=== PATIENT | female | born 1930 | race Caucasian/White ===

== ENCOUNTER 2017-02-22 05:30 | Emergency (ER) | payer MEDICARE ==
[~2017-02-22] VITALS: Ht 165.1 cm; Wt 55.0 kg
[~2017-02-22 05:30] MED LIST: ASPI1TAB69 PO; CARB25TA9 PO; DORZ2SOL EACH EYE; EFFE150C PO; LATA0.002 EACH EYE; LORA-373 PO; POTA-243 PO; SENN1TAB PO; TRAM50TA PO; VITA10003 PO
[2017-02-22 05:33] VITALS: BP 160/68; PULSE 66; RESP 18; TEMP 98.5; O2SAT 96
[2017-02-22] MEDS ORDERED: ACET-703 PO (05:42)
[2017-02-22] MEDS ORDERED: TETANUS/DIPHTHERIA TOXOID ADULT 0.5 ML VIAL IM ONE (06:00)
[2017-02-22] MEDS ORDERED: LIDOCAINE 1%/EPINEPHrine 1:100,000 SOLN 20 ML VIAL INFIL ONE (06:00)
--- NOTE | 2017-02-22 06:12 | PD ---
HPI Chief Complaint: Laceration/Skin Injury Time Seen by Provider: 05:46 Travel History International Travel<30 days: No Contact w/Intl Traveler<30days: No Traveled to known affect area: No History of Present Illness HPI 86-year-old female arrives after a mechanical slip and fall in her house. She arrives with a laceration involving the right forearm. She does not her last tetanus. She has no other injury to report. PFSH Past Medical History Anxiety: Yes Depression: Yes Heart Rhythm Problems: No Cancer: No Cardiovascular Problems: No High Cholesterol: No Cerebrovascular Accident: No Diabetes: No Endocrine: No Genitourinary: Yes (KIDNEY STONes) Hepatitis: No Hiatal Hernia: No Immune Disorder: No Kidney Stones: Yes Musculoskeletal: No Neurologic: Yes (PARKINSON) Psychiatric: Yes (ANXIETY DEPRESSION) Reproductive: No Respiratory: No Migraines: No Seizures: No Thyroid Disease: No Menopausal: Yes Past Surgical History Abdominal Surgery: No AICD: No Cardiac Surgery: No Ear Surgery: No Endocrine Surgery: No Eye Surgery: Yes (cataract) Genitourinary Surgery: No Gynecologic Surgery: Yes (HYSTERECTOMY) Joint Replacement: No Oral Surgery: No Pacemaker: No Other Surgery: Yes Social History Alcohol Use: No Tobacco Use: No Substance Use: No Allergies-Medications (Allergen,Severity, Reaction): Coded Allergies: No Known Allergies (Unverified , 02/22/17) Reported Meds & Prescriptions Reported Meds & Active Scripts Active Lorazepam 0.5 Mg Tab 0.5 Mg PO HS PRN Senna-Plus (Sennosides-Docusate Sodium) 8.6-50 Mg Tab 2 Tab PO DAILY 2 tablets daily; hold for loose BM Reported Tylenol Extra Strength (Acetaminophen) 500 Mg Tab 500 Mg PO HS Dorzolamide Opth Drops (Dorzolamide HCl) 2% Soln 1 Drop EACH EYE BID Latanoprost Opth Drops (Latanoprost) 0.005% Drops 1 Drop EACH EYE HS Refrigerate until opened. Vitamin D-3 (Cholecalciferol) 1,000 Unit Tab 1,000 Units PO DAILY Aspirin 81 Mg Tabdr 81 Mg PO DAILY Effexor XR 24 HR (Venlafaxine HCl) 150 Mg Cap 150 Mg PO DAILY Carbidopa-Levodopa 25-100 Mg Tab 1 Tab PO TID Review of Systems General / Constitutional: No: Fever Physical Exam Narrative GENERAL: 86 F, WNWD, mild distress SKIN: Warm and dry. HEAD: Atraumatic. Normocephalic. MUSCULOSKELETAL: Extremities without clubbing, cyanosis, or edema. No obvious deformities. NEUROLOGICAL: Awake and alert. No obvious cranial nerve deficits. Motor grossly within normal limits. Five out of 5 muscle strength in the arms and legs. Normal speech. PSYCHIATRIC: Appropriate mood and affect; insight and judgment normal. Data Data Last Documented VS Vital Signs Date Time Temp Pulse Resp B/P Pulse Ox O2 Delivery O2 Flow Rate FiO2 02/22/17 05:33 98.5 66 18 160/68 96 Vital signs reviewed Orders Tetanus/Diphtheria Tox Adult (Tetanus/Di (02/22/17 06:00) Lidocai-Epi 1%-1:100,000 Inj (Xylocaine- (02/22/17 06:00) MDM Medical Decision Making Medical Screen Exam Complete: Yes Emergency Medical Condition: Yes Medical Record Reviewed: Yes Differential Diagnosis Laceration, avulsion, tendon injury Narrative Course laceration repair by PA appreciated. pt ready for discharge. Diagnosis Primary Impression: Laceration of arm Qualified Code: S41.111A - Laceration of arm, right, initial encounter Referrals: return to er in 9 days for suture removal Additional Instructions: You have a choice when it comes to health care, and we are glad that you chose [email or web address]. Hopefully, we have met your expectations on today's visit. You are welcome to return to [facility] at any time, as we are committed to meeting the health care needs of our community. Disposition: 01 DISCHARGE HOME Condition: Stable Marco Antonio Kingsley MD Feb 22, 2017 06:12
--- NOTE | 2017-02-22 06:46 | PD ---
Physical Exam Time Seen by Provider: 06:00 Data Data Last Documented VS Vital Signs Date Time Temp Pulse Resp B/P Pulse Ox O2 Delivery O2 Flow Rate FiO2 02/22/17 05:33 98.5 66 18 160/68 96 Orders Tetanus/Diphtheria Tox Adult (Tetanus/Di (02/22/17 06:00) Lidocai-Epi 1%-1:100,000 Inj (Xylocaine- (02/22/17 06:00) MDM Medical Record Reviewed: Yes Supervised Visit with EDGARDO: No Narrative Course The patient has a large flap laceration to the right forearm, I was asked to repair it. The patient verbally consented for laceration repair. Procedures Procedure Narrative LACERATION LOCATION: Right arm LENGTH: 10-15 cm NUMBER OF STITCHES/VAL: 25 REPAIR: The area of the laceration was prepped with Betadine and sterilely draped. The laceration was infiltrated with 1% lidocaine with epinephrine. The wound was copiously irrigated and explored without evidence of foreign body , tendon injury or neurovascular injury. The wound was closed using 5-0 prolene simple interrupted. This was a single layer repair. A sterile dressing was applied. The patient was advised to keep the dressing clean and dry. Patient tolerated the procedure well. Diagnosis Primary Impression: Laceration of arm Qualified Code: S41.111A - Laceration of arm, right, initial encounter Referrals: return to er in 9 days for suture removal Additional Instruction: You have a choice when it comes to health care, and we are glad that you chose [facility]. Hopefully, we have met your expectations on today's visit. You are welcome to return to [facility] at any time, as we are committed to meeting the health care needs of our community. Disposition: 01 DISCHARGE HOME Condition: Stable Rahat Bhatt Feb 22, 2017 06:46
[2017-02-22 08:08] VITALS: BP 154/69; PULSE 70; RESP 18; O2SAT 98
[2017-03-17] MEDS ORDERED: LORA-373 PO (11:27)
== END 2017-02-22 08:48 | disposition home or self-care (01) ==
LOC: NEPE 05:30
DX: S51.811A Laceration without foreign body of right forearm, initial encounter (principal); Z23 Encounter for immunization; G20 Parkinson's disease; W01.0XXA Fall on same level from slipping, tripping and stumbling without subsequent striking against object, initial encounter; Y93.9 Activity, unspecified; Y92.009 Unspecified place in unspecified non-institutional (private) residence as the place of occurrence of the external cause; Y99.8 Other external cause status
CPT/HCPCS: 12004; 90471; 90714

== ENCOUNTER 2018-04-05 17:57 | Inpatient (IN) | payer MEDICARE ==
[~2018-04-05] VITALS: Ht 165.1 cm; Wt 52.2 kg
[~2018-04-05 17:57] MED LIST changes: -ASPI1TAB69 PO; +DOCU100C15 PO; -LORA-373 PO; +LORA0.5T PO; -POTA-243 PO; -SENN1TAB PO; +SULF1TAB23 PO; -TRAM50TA PO; -VITA10003 PO
[2018-04-05 18:03] VITALS: BP 165/75; PULSE 90; RESP 14; TEMP 98.3; O2SAT 97
[2018-04-05] MEDS ORDERED: SODIUM CHLORID 0.9% 500 ML INJ 500 ML IV ONE (18:15)
[2018-04-05] MEDS ORDERED: METOCLOPRAMIDE HCL 10 MG/2 ML VIAL IV PUSH ONE (18:15)
[2018-04-05] MEDS ORDERED: SODIUM CHLORIDE 0.9% FLUSH 10 ML FLUSH IVF PRN (18:15)
[2018-04-05] MEDS ORDERED: CALC200S NASAL (18:43)
[2018-04-05] MEDS ORDERED: TRAM50TA PO (18:43)
[2018-04-05 18:45] LABS: AUTOMATED NEUTROPHIL # 12.5 TH/MM3 (1.8-7.7); BASOPHIL % 0.1 % (0.0-2.0); HEMATOCRIT 38.7 % (35.0-46.0); LYMPH % 2.7 % (9.0-44.0); LYMPHOCYTE # 0.4 TH/MM3 (1.0-4.8); MEAN CORPUSCULAR HGB CONC 33.7 % (32.0-36.0); MEAN PLATELET VOLUME 8.2 FL (7.0-11.0); MONO % 7.1 % (0.0-8.0); NEUT % 90.1 % (16.0-70.0); PLATELET COUNT 186 TH/MM3 (150-450); RED BLOOD COUNT 3.95 MIL/MM3 (4.00-5.30); RED CELL DISTRIBUTION WIDTH 13.3 % (11.6-17.2); WHITE BLOOD COUNT 13.9 TH/MM3 (4.0-11.0)
--- NOTE | 2018-04-05 18:57 | RADRPT ---
EXAM DATE: 04/05/2018 6:53 PM EDT AGE/SEX: 87 years / Female INDICATIONS: Pain from fall on right shoulder. CLINICAL DATA: This is the patient's initial encounter. Patient reports that signs and symptoms have been present for 1 day and indicates a pain score of 3/10. MEDICAL/SURGICAL HISTORY: None. None. COMPARISON: No prior [facility] exams available for comparison. FINDINGS: No acute fracture or dislocation is noted. Mild degenerative changes are noted involving the right ac romioclavicular joint. CONCLUSION: 1. No acute fracture or dislocation. 2. Mild degenerative changes involving the right acromioclavicular joint. Electronically signed by: Omar Das MD 04/05/2018 6:55 PM EDT
[2018-04-05 19:03] LABS: INTERNATIONAL NORMALIZED RATIO 1.2 RATIO; PROTHROMBIN TIME - PATIENT 11.9 SEC (9.8-11.6)
--- NOTE | 2018-04-05 19:04 | PD ---
HPI Chief Complaint: Fall Time Seen by Provider: 18:09 Travel History International Travel<30 days: No Contact w/Intl Traveler<30days: No Traveled to known affect area: No History of Present Illness HPI 87 YO F with PMH of Parkinsons presents to the ED for evaluation after mechanical fall. Patient states that she has an ataxic gait, lost her balance, slumped to the floor. She states that she was unable to get up overnight. She denies preceding headache, dizziness, chest pain, shortness of breath. She denies hitting her head or loss of consciousness. Her son is at bedside and states that he saw her normally around 8:00 last night. He found her this afternoon around 4:00. States she has been alert, oriented, ambulatory since then. He states he became concerned with his mom started vomiting around 6 PM, so he brought her to the ED. PFSH Past Medical History Anxiety: Yes Depression: Yes Heart Rhythm Problems: No Cancer: No Cardiovascular Problems: No High Cholesterol: No Cerebrovascular Accident: No Diabetes: No Endocrine: No Genitourinary: Yes (KIDNEY STONes) Hepatitis: No Hiatal Hernia: No Immune Disorder: No Kidney Stones: Yes Medical other: Yes (HISTORY OF FALLS) Musculoskeletal: No Neurologic: Yes (PARKINSON) Parkinson's Disease: Yes Psychiatric: Yes (ANXIETY DEPRESSION) Reproductive: No Respiratory: No Migraines: No Seizures: No Thyroid Disease: No Menopausal: Yes Past Surgical History Abdominal Surgery: No AICD: No Cardiac Surgery: No Ear Surgery: No Endocrine Surgery: No Eye Surgery: Yes (cataract) Genitourinary Surgery: No Gynecologic Surgery: Yes (HYSTERECTOMY) Joint Replacement: No Oral Surgery: No Pacemaker: No Other Surgery: Yes Social History Alcohol Use: No Tobacco Use: No Substance Use: No Allergies-Medications (Allergen,Severity, Reaction): Coded Allergies: No Known Allergies (Unverified Adverse Reaction, Unknown, 04/05/18) Reported Meds & Prescriptions Reported Meds & Active Scripts Active Lorazepam 0.5 Mg Tab 0.5 Mg PO DIRECTED PRN 1-2 tabs (0.5-1mg) at bedtime as needed for sleep Effexor XR 24 HR (Venlafaxine HCl) 150 Mg Cap 150 Mg PO DAILY Carbidopa-Levodopa 25-100 Mg Tab 1 Tab PO TID Reported Calcitonin ([place]) Nasal [place] (Calcitonin [place]) 200 Units/Act Soln 1 [place] NASAL DAILY Alternate nostrils daily. Tramadol (Tramadol HCl) 50 Mg Tab 50 Mg PO Q6H PRN Docusate Sodium 100 Mg Cap 200 Mg PO HS Dorzolamide Opth Drops (Dorzolamide HCl) 2% Soln 1 Drop EACH EYE BID Latanoprost Opth Drops (Latanoprost) 0.005% Drops 1 Drop EACH EYE HS Refrigerate until opened. Review of Systems Except as stated in HPI: all other systems reviewed are Neg Physical Exam Narrative GENERAL: Well-nourished, well-developed pleasant white female no acute distress. Alert, oriented. SKIN: Focused skin assessment warm/dry. Ecchymosis over the right shoulder. HEAD: Normocephalic. Atraumatic. No tenderness to palpation of the skull bones EYES: No scleral icterus. No injection or drainage. PERRLA. EOMI. . NECK: Supple, trachea midline. No JVD or lymphadenopathy. No midline tenderness to palpation. CARDIOVASCULAR: Regular rate and rhythm without murmurs, gallops, or rubs. RESPIRATORY: Breath sounds clear and equal bilaterally. No accessory muscle use. GASTROINTESTINAL: Abdomen soft, non-tender, nondistended. Active bowel sounds. MUSCULOSKELETAL: No cyanosis, or edema. Mild tenderness to palpation of the right shoulder joint. Patient is able to extend, flex and abduct the shoulder without difficulty. No tenderness to palpation of the remaining joints of the upper and lower extremities bilaterally. Leg length symmetric. No pain elicited with pelvic rocking. BACK: Nontender without obvious deformity. No CVA tenderness. Data Data Last Documented VS Vital Signs Date Time Temp Pulse Resp B/P (MAP) Pulse Ox O2 Delivery O2 Flow Rate FiO2 04/05/18 19:33 92 18 121/59 (79) 99 Room Air 04/05/18 18:03 98.3 Orders Orders Electrocardiogram (04/05/18 18:14) Complete Blood Count With Diff (04/05/18 18:14) Comprehensive Metabolic Panel (04/05/18 18:14) Prothrombin Time / Inr (Pt) (04/05/18 18:14) Act Partial Throm Time (Ptt) (04/05/18 18:14) Urinalysis - C+S If Indicated (04/05/18 18:14) Iv Access Insert/Monitor (04/05/18 18:14) Oximetry (04/05/18 18:14) Ecg Monitoring (04/05/18 18:14) Sodium Chloride 0.9% Flush (Ns Flush) (04/05/18 18:15) Sodium Chlorid 0.9% 500 Ml Inj (Ns 500 M (04/05/18 18:15) Metoclopramide Inj (Reglan Inj) (04/05/18 18:15) Shoulder, Complete (>2vws) (04/05/18 18:24) Creatine Kinase (Cpk) (04/05/18 18:14) CKMB (04/05/18 18:20) CKMB% (04/05/18 18:20) Sodium Chlor 0.9% 1000 Ml Inj (Ns 1000 M (04/05/18 20:30) Admit Order (Ed Use Only) (04/05/18 21:19) Labs Laboratory Tests Test 04/05/18 18:00 04/05/18 18:20 White Blood Count 13.9 TH/MM3 Red Blood Count 3.95 MIL/MM3 Hemoglobin 13.0 GM/DL Hematocrit 38.7 % Mean Corpuscular Volume 98.0 FL Mean Corpuscular Hemoglobin 33.0 PG Mean Corpuscular Hemoglobin Concent 33.7 % Red Cell Distribution Width 13.3 % Platelet Count 186 TH/MM3 Mean Platelet Volume 8.2 FL Neutrophils (%) (Auto) 90.1 % Lymphocytes (%) (Auto) 2.7 % Monocytes (%) (Auto) 7.1 % Eosinophils (%) (Auto) 0.0 % Basophils (%) (Auto) 0.1 % Neutrophils # (Auto) 12.5 TH/MM3 Lymphocytes # (Auto) 0.4 TH/MM3 Monocytes # (Auto) 1.0 TH/MM3 Eosinophils # (Auto) 0.0 TH/MM3 Basophils # (Auto) 0.0 TH/MM3 CBC Comment DIFF FINAL Differential Comment Prothrombin Time 11.9 SEC Prothromb Time International Ratio 1.2 RATIO Activated Partial Thromboplast Time 27.1 SEC Blood Urea Nitrogen 21 MG/DL Creatinine 0.79 MG/DL Random Glucose 118 MG/DL Total Protein 7.8 GM/DL Albumin 3.4 GM/DL Calcium Level 9.3 MG/DL Alkaline Phosphatase 160 U/L Aspartate Amino Transf (AST/SGOT) 90 U/L Alanine Aminotransferase (ALT/SGPT) 11 U/L Total Bilirubin 1.0 MG/DL Sodium Level 138 MEQ/L Potassium Level 3.3 MEQ/L Chloride Level 100 MEQ/L Carbon Dioxide Level 23.8 MEQ/L Anion Gap 14 MEQ/L Estimat Glomerular Filtration Rate 69 ML/MIN Total Creatine Kinase 2030 U/L Creatine Kinase MB 16.1 NG/ML Creatine Kinase MB % 0.8 % MDM Medical Decision Making Medical Screen Exam Complete: Yes Emergency Medical Condition: Yes Differential Diagnosis Fall versus musculoskeletal pain versus fracture versus rhabdomyolysis versus other Narrative Course 87 YO F with PMH of Parkinsons presents to the ED for evaluation after mechanical fall. Patient states that she has an ataxic gait, lost her balance, slumped to the floor. She states that she was unable to get up overnight. She denies preceding headache, dizziness, chest pain, shortness of breath. She denies hitting her head or loss of consciousness. Her son became worried when she was nauseous this afternoon and brought her to the ED. patient is afebrile, heart rate 90, BP 165/75 on presentation. On exam this is a pleasant white female in no acute distress. She has a bruise on the right shoulder but there is no other visible signs of trauma. She is alert and oriented. No focal neuro deficits. She had a few episodes of dark emesis, guaiac negative. IV was established. Patient was administered 0.5 L normal saline, 5 mg Reglan IV. EKG: Rate 76, P waves of multiple morphologies. Rate of 80. No ST elevations. Reviewed by Dr. Rodriguez. CBC: WBC 13.9, neutrophil predominant. Hemoglobin 13.0. INR: 1.2. CMP: Potassium 3.3. BUN 21, creatinine 0.79. CK: 2030. Right shoulder x-ray: Degenerative changes in the AC joint, no acute findings. Patient was administered a second liter of normal saline. On recheck she seems improved, vomiting and nausea have resolved. I discussed the results of workup as well as the recommendation for observation admission. The patient and her family are agreeable. I spoke with Dr. Aragon who agree to accept the patient the medicine service. Please see medicine notes for disposition. [facility] Point of Care Internal Pos. & Neg. Controls: Passed Gastric Specimen Occult Blood: Negative Dayana Giang Apr 05, 2018 19:04
[2018-04-05 19:21] LABS: ALBUMIN 3.4 GM/DL (3.4-5.0); AST (GOT) 90 U/L (15-37); BICARBONATE 23.8 MEQ/L (21.0-32.0); BLOOD UREA NITROGEN 21 MG/DL (7-18); CALCIUM 9.3 MG/DL (8.5-10.1); CHLORIDE 100 MEQ/L (98-107); CREATININE 0.79 MG/DL (0.50-1.00); GLOMERULAR FILTRATION RATE 69 ML/MIN (>89); GLUCOSE,RANDOM 118 MG/DL (74-106); SODIUM (NA) 138 MEQ/L (136-145)
[2018-04-05 19:22] LABS: ALT (GPT) 11 U/L (10-53)
[2018-04-05 19:33] VITALS: BP 121/59; PULSE 92; RESP 18; O2SAT 99
[2018-04-05 19:39] LABS: ALKALINE PHOSPHATASE 160 U/L (45-117); TOTAL PROTEIN 7.8 GM/DL (6.4-8.2)
[2018-04-05] MEDS ORDERED: SODIUM CHLOR 0.9% 1000 ML INJ 1,000 ML IV ONE (20:30)
--- NOTE | 2018-04-05 21:23 | HHI.HP ---
[facility] Service Family Medicine Primary Care Physician Jacob Diaz MD Admission Diagnosis Rhabdomyolysis Diagnoses: Chief Complaint: fall International Travel<30 Days: No Contact w/Intl Traveler<30days: No Known Affected Area: No History of Present Illness 87-year-old female with history of Parkinson's, depression, recurrent falls presents after a fall. Patient is accompanied by son who provides some of the history. Patient states she has a history of an ataxic gait and several falls in the last year. She is unsure of what happened, but lost her balance and fell last night. She lives by herself at [facility]. Her son found her this morning at 9 AM. States she fell around 5 PM last night. Denies hitting her head. Did bruise her shoulder little bit, but otherwise no pain anywhere else. Initially stayed at home, but throughout the day patient became more lethargic and nauseous and then was brought to the ED for evaluation. She usually gets up on her own from falls, but this time was too weak. Did urinate while she was on the ground. States she has falls about once per month. Is a walker at home. Denies any other preceding symptoms, including dizziness, chest pain, shortness of breath. Denies any fever or chills, recent illness. (Lester Aragon MD R2) Review of Systems Constitutional: DENIES: Fever, Weight loss, Chills, Dizziness Eyes: DENIES: Eye pain, Vision loss Ears, nose, mouth, throat: DENIES: Nasal discharge, Throat pain, Hoarseness Respiratory: DENIES: Cough, Snoring, Wheezing, Sputum production, Shortness of breath Cardiovascular: DENIES: Chest pain, Palpitations, Syncope, Lower Extremity Edema Gastrointestinal: COMPLAINS OF: Nausea, DENIES: Abdominal pain, Black stools, Bloody stools, Constipation, Diarrhea, Vomiting Genitourinary: DENIES: Urinary frequency, Urgency, Dysuria Musculoskeletal: COMPLAINS OF: Muscle aches, Back pain Integumentary: DENIES: Abnormal pigmentation, Rash Hematologic/lymphatic: DENIES: Bruising, Lymphadenopathy Immunologic/allergic: DENIES: Eczema, Urticaria Neurologic: COMPLAINS OF: Abnormal gait, DENIES: Headache, Localized weakness, Paresthesias, Seizures Psychiatric: DENIES: Confusion, Mood changes (Lester Aragon MD R2) Past Family Social History Past Medical History Parkinson's/Gait abnormality Re-current UTIs Depression Renal calculi with obstruction of right ureter and hospitalization for UTI 2014. Past Surgical History Bilateral cataract surgery Tonsillectomy in 1930 Partial hysterectomy 1969 Reported Medications Reported Meds & Active Scripts Active Lorazepam 0.5 Mg Tab 0.5 Mg PO DIRECTED PRN 1-2 tabs (0.5-1mg) at bedtime as needed for sleep Effexor XR 24 HR (Venlafaxine HCl) 150 Mg Cap 150 Mg PO DAILY Carbidopa-Levodopa 25-100 Mg Tab 1 Tab PO TID Reported Calcitonin ([place]) Nasal [place] (Calcitonin [place]) 200 Units/Act Soln 1 [place] NASAL DAILY Alternate nostrils daily. Tramadol (Tramadol HCl) 50 Mg Tab 50 Mg PO Q6H PRN Docusate Sodium 100 Mg Cap 200 Mg PO HS Dorzolamide Opth Drops (Dorzolamide HCl) 2% Soln 1 Drop EACH EYE BID Latanoprost Opth Drops (Latanoprost) 0.005% Drops 1 Drop EACH EYE HS Refrigerate until opened. (Lester Aragon MD R2) Allergies: Coded Allergies: No Known Allergies (Unverified Adverse Reaction, Unknown, 04/05/18) Active Ordered Medications Active Medications Metoclopramide HCl (Reglan Inj) 5 mg ONCE ONCE IV PUSH Last administered on 04/05at 18:31; Admin Dose 5 MG; Start 04/05/18 at 18:15; Stop 04/05/18 at 18:16; Status DC Sodium Chloride 500 ml @ 500 mls/hr BOLUS ONCE IV Last administered on at 18:31; Admin Dose 500 MLS/HR; Start 04/05/18 at 18:15; Stop 04/05/18 at 19:14 ; Status DC Sodium Chloride 1,000 ml @ 999 mls/hr BOLUS ONCE IV Last administered on at 21:01; Admin Dose 999 MLS/HR; Start 04/05/18 at 20:30; Stop 04/05/18 at 21:30 Sodium Chloride (NS Flush) 2 ml UNSCH PRN IVF; Start 04/05/18 at 18:15 Family History Father: at age 90 secondary to an infection Mother: at age 95 with Alzheimer's disease Siblings: one sister with dementia Children: two children alive and well Social History Living Situation: independent apartment at [facility] Education: 4 years of college 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 SKIN: No rashes, or lesions. Cool and dry. Scattered ecchymoses on legs. HEAD: Atraumatic. Normocephalic. No temporal or scalp tenderness. EYES: Pupils equal round and reactive. Extraocular motions intact. No scleral icterus. No injection or drainage. ENT: Throat without erythema, tonsillar hypertrophy or exudate. Uvula midline. Airway patent. NECK: Trachea midline. No JVD or lymphadenopathy. Supple, nontender. CARDIOVASCULAR: Regular rate and rhythm. Systolic murmur present. RESPIRATORY: Clear to auscultation. Breath sounds equal bilaterally. No wheezes , rales, or rhonchi. GASTROINTESTINAL: Abdomen soft, non-tender, nondistended. No hepato-splenomegaly , or palpable masses. No guarding. MUSCULOSKELETAL: Extremities without clubbing, cyanosis, or edema. No joint tenderness, effusion, or edema noted. No calf tenderness. NEUROLOGICAL: Awake and alert. Motor and sensory grossly within normal limits. Five out of 5 muscle strength in all muscle groups. Normal speech. Laboratory Laboratory Tests Test 04/05/18 18:00 04/05/18 18:20 White Blood Count 13.9 Red Blood Count 3.95 Hemoglobin 13.0 Hematocrit 38.7 Mean Corpuscular Volume 98.0 Mean Corpuscular Hemoglobin 33.0 Mean Corpuscular Hemoglobin Concent 33.7 Red Cell Distribution Width 13.3 Platelet Count 186 Mean Platelet Volume 8.2 Neutrophils (%) (Auto) 90.1 Lymphocytes (%) (Auto) 2.7 Monocytes (%) (Auto) 7.1 Eosinophils (%) (Auto) 0.0 Basophils (%) (Auto) 0.1 Neutrophils # (Auto) 12.5 Lymphocytes # (Auto) 0.4 Monocytes # (Auto) 1.0 Eosinophils # (Auto) 0.0 Basophils # (Auto) 0.0 CBC Comment DIFF FINAL Differential Comment Prothrombin Time 11.9 Prothromb Time International Ratio 1.2 Activated Partial Thromboplast Time 27.1 Blood Urea Nitrogen 21 Creatinine 0.79 Random Glucose 118 Total Protein 7.8 Albumin 3.4 Calcium Level 9.3 Alkaline Phosphatase 160 Aspartate Amino Transf (AST/SGOT) 90 Alanine Aminotransferase (ALT/SGPT) 11 Total Bilirubin 1.0 Sodium Level 138 Potassium Level 3.3 Chloride Level 100 Carbon Dioxide Level 23.8 Anion Gap 14 Estimat Glomerular Filtration Rate 69 Total Creatine Kinase 2030 Creatine Kinase MB 16.1 Creatine Kinase MB % 0.8 (Lester Aragon MD R2) Result Diagram: 04/05/18 1800 04/05/181819 Imaging Last Impressions Shoulder X-Ray 04/05/181823 Signed Impressions: CONCLUSION: 1. No acute fracture or dislocation. 2. Mild degenerative changes involving the right acromioclavicular joint. (Lester Aragon MD R2) Caprini VTE Risk Assessment Caprini VTE Risk Assessment: Mod/High Risk (score >= 2) Caprini Risk Assessment Model Point Value = 1 Point Value = 2 Point Value = 3 Point Value = 5 Age 41-60 Minor surgery BMI > 25 kg/m2 Swollen legs Varicose veins or History of unexplained or recurrent spontaneous Oral contraceptives or hormone replacement Sepsis (< 1 month) Serious lung disease, including pneumonia (< 1 month) Abnormal pulmonary function Acute myocardial infarction Congestive heart failure (< 1 month) History of inflammatory bowel disease Medical patient at bed rest Age 61-74 Arthroscopic surgery Major open surgery (> 45 min) Laparoscopic surgery (> 45 min) Malignancy Confined to bed (> 72 hours) Immobilizing plaster cast Central venous access Age >= 75 History of VTE Family history of VTE Factor V Leiden Prothrombin [id number] Lupus anticoagulant Anticardiolipin antibodies Elevated serum homocysteine Heparin-induced thrombocytopenia Other congenital or acquired thrombophilia Stroke (< 1 month) Elective arthroplasty Hip, pelvis, or leg fracture Acute spinal cord injury (< 1 month) Prophylaxis Regimen Total Risk Factor Score Risk Level Prophylaxis Regimen 0-1 Low Early ambulation 2 Moderate Order ONE of the following: *Sequential Compression Device (SCD) *Heparin 5000 units SQ BID 3-4 Higher Order ONE of the following medications: *Heparin 5000 units SQ TID *Enoxaparin/Lovenox 40 mg SQ daily (WT < 150 kg, CrCl > 30 mL/min) *Enoxaparin/Lovenox 30 mg SQ daily (WT < 150 kg, CrCl > 10-29 mL/min) *Enoxaparin/Lovenox 30 mg SQ BID (WT < 150 kg, CrCl > 30 mL/min) AND/OR *Sequential Compression Device (SCD) 5 or more Highest Order ONE of the following medications: *Heparin 5000 units SQ TID (Preferred with Epidurals) *Enoxaparin/Lovenox 40 mg SQ daily (WT < 150 kg, CrCl > 30 mL/min) *Enoxaparin/Lovenox 30 mg SQ daily (WT < 150 kg, CrCl > 10-29 mL/min) *Enoxaparin/Lovenox 30 mg SQ BID (WT < 150 kg, CrCl > 30 mL/min) AND *Sequential Compression Device (SCD) (Lester Aragon MD R2) Assessment and Plan Assessment and Plan 79-year-old female with history of Parkinson's, depression, recurrent falls presents after a fall and being on the ground for night. Found to have rhabdomyolysis. Will admit for IV hydration and observation. Code Status DNR (Lester Aragon MD R2) Attending Attestation THIS CASE WAS DISCUSSED WITH THE RESIDENT PHYSICIANS. I HAVE REVIEWED THE RECORD AND AGREE WITH THE ABOVE NOTE AND PLAN OF CARE WAS DISCUSSED. I HAVE AUTHORIZED THE ORDER FOR ADMISSION TO AN IN-PATIENT STATUS. (Luis Manuel Jorgensen MD) Problem List: (1) Rhabdomyolysis ICD Codes: M62.82 - Rhabdomyolysis Plan: Patient presents after falling and pain down overnight. CK on admission 2030. BUN slightly elevated at 21, Creatinine 0.79. Given 1.5 L bolus in the ED. -1.5 maintenance IVF -Monitor CK -Monitor kidney function -Monitor I/O -Telemetry (2) Falls ICD Codes: W19.XXXA - Unspecified fall, initial encounter Plan: Patient with history of ataxic gait with parkinsonian symptoms. Currently on Sinemet. Patient was several falls over the last few months. Patient does not remember much about this fall, but denies any preemptive symptoms WBC 13.9 on admission. Slightly tachycardic -UA pending to rule out infection -Bed rest -PT/OT -Continue home Sinemet -Neuro checks -Tylenol PRN pain -Telemetry (3) Parkinsonian features ICD Codes: R25.9 - Parkinsonian features Status: Acute Plan: See plan above for falls Continue home Sinemet Permanent Comment: Affecting gait Last Edited By: Jacob Diaz on Dec 22, 2013 11:26 (4) Depressive disorder ICD Codes: F32.9 - Depressive disorder Status: Chronic Plan: Stable Continue home Effexor & Ativan PRN (5) FEN Status: Acute Plan: Fluids: NS @ 140mls/hr Electrolytes: monitor, replace PRN Nutrition: regular diet DVT ppx: Lovenox (Lester Aragon MD R2) Problem Qualifiers (1) Rhabdomyolysis: (2) Falls: Qualified Codes: W19.XXXD - Unspecified fall, subsequent encounter Lester Aragon MD R2 Apr 05, 2018 21:23 Luis Manuel Jorgensen MD Apr 06, 2018 14:40
[2018-04-05] MEDS ORDERED: SENNOSIDES 8.6 MG TAB PO PRN (22:00)
[2018-04-05] MEDS ORDERED: SODIUM CHLORIDE 0.9% FLUSH 10 ML FLUSH IV FLUSH PRN (22:00)
[2018-04-05] MEDS ORDERED: METOCLOPRAMIDE HCL 10 MG/2 ML VIAL IV PUSH PRN (22:00)
[2018-04-05] MEDS ORDERED: ACETAMINOPHEN 325 MG TAB PO PRN (22:00)
[2018-04-05] MEDS ORDERED: LACTULOSE SYRUP 20 GM/30 ML CUP PO PRN (22:00)
[2018-04-05] MEDS ORDERED: BISACODYL 10 MG SUPP RECTAL PRN (22:00)
[2018-04-05] MEDS ORDERED: NALOXONE HCL 0.4 MG/ML AMP IV PUSH PRN (22:00)
[2018-04-05] MEDS ORDERED: MAGNESIUM HYDROXIDE SUSP 30 ML CUP PO PRN (22:00)
[2018-04-05] MEDS ORDERED: LORazepam 0.5 MG TAB PO PRN (22:15)
[2018-04-05 22:34] VITALS: BP 142/62; PULSE 92; RESP 18; O2SAT 98
[2018-04-05 22:35] VITALS: BP 139/65; PULSE 94; RESP 16; TEMP 97.6; O2SAT 92
[2018-04-05 23:00] VITALS: PULSE 94
[2018-04-05] MEDS: ENOXAPARIN SODIUM 40 MG/0.4 ML SYRINGE SQ SCH (23:05)
[2018-04-05] MEDS: SODIUM CHLOR 0.9% 1000 ML INJ 1,000 ML IV SCH (23:05)
[2018-04-06] VITALS (10 sets, daily range): BP systolic 106–157; BP diastolic 55–68; PULSE 64–103; RESP 16–20; TEMP 97.4–99.5; O2SAT 95–97
[2018-04-06] MEDS: SODIUM CHLOR 0.9% 1000 ML INJ 1,000 ML IV SCH ×3 (05:09→21:44)
[2018-04-06] MEDS: SODIUM CHLORIDE 0.9% FLUSH 10 ML FLUSH IV FLUSH SCH ×2 (09:00→21:44)
[2018-04-06] MEDS: DOCUSATE SODIUM 50 MG/SENNA 8.6 MG TAB PO SCH ×2 (09:05→21:45)
[2018-04-06] MEDS: VENLAFAXINE HCL XR 75 MG CAP PO SCH (09:07)
[2018-04-06] MEDS: CARBIDOPA/LEVODOPA 25 MG/100 MG TAB PO SCH ×3 (09:07→17:18)
[2018-04-06] MEDS: DORZOLAMIDE 2% OPTH SOLN 200 DROP/10 ML BTLO EACH EYE SCH ×2 (09:09→21:44)
--- NOTE | 2018-04-06 09:43 | EKG ---
Date Performed: 04/05/2018 Time Performed: 18:37:51 PTAGE: 87 years EKG: Sinus rhythm WITH FIRST DEGREE AV BLOCK WITH PACS LEFT ANTERIOR FASCICULAR BLOCK POSSIBLE LEFT VENTRICULAR HYPERT ROPHY Compared to previous tracing nonspecific ST T changes have improved ABNORMAL ECG PREVIOUS TRACING : 03/29/2015 09.39 DOCTOR: Cristian Obando Interpretating Date/Time 04/06/2018 09:42:08
[2018-04-06 10:08] LABS: AUTOMATED NEUTROPHIL # 9.5 TH/MM3 (1.8-7.7); BASOPHIL % 0.1 % (0.0-2.0); HEMATOCRIT 32.7 % (35.0-46.0); HEMOGLOBIN 11.3 GM/DL (11.6-15.3); LYMPH % 3.2 % (9.0-44.0); LYMPHOCYTE # 0.3 TH/MM3 (1.0-4.8); MEAN CELL VOLUME 97.9 FL (80.0-100.0); MEAN CORPUSCULAR HEMOGLOBIN 33.7 PG (27.0-34.0); MEAN CORPUSCULAR HGB CONC 34.5 % (32.0-36.0); MEAN PLATELET VOLUME 8.4 FL (7.0-11.0); MONO % 6.1 % (0.0-8.0); MONOCYTE # 0.6 TH/MM3 (0-0.9); NEUT % 90.6 % (16.0-70.0); PLATELET COUNT 156 TH/MM3 (150-450); RED BLOOD COUNT 3.34 MIL/MM3 (4.00-5.30); RED CELL DISTRIBUTION WIDTH 13.4 % (11.6-17.2); WHITE BLOOD COUNT 10.4 TH/MM3 (4.0-11.0)
[2018-04-06 10:39] LABS: ALBUMIN 2.8 GM/DL (3.4-5.0); ALKALINE PHOSPHATASE 134 U/L (45-117); ALT (GPT) 21 U/L (10-53); AST (GOT) 63 U/L (15-37); BICARBONATE 19.6 MEQ/L (21.0-32.0); BLOOD UREA NITROGEN 17 MG/DL (7-18); CALCIUM 8.3 MG/DL (8.5-10.1); CHLORIDE 108 MEQ/L (98-107); CREATININE 0.65 MG/DL (0.50-1.00); GLOMERULAR FILTRATION RATE 86 ML/MIN (>89); GLUCOSE,RANDOM 86 MG/DL (74-106); SODIUM (NA) 142 MEQ/L (136-145); TOTAL BILIRUBIN ADULT 0.7 MG/DL (0.2-1.0); TOTAL PROTEIN 6.5 GM/DL (6.4-8.2)
[2018-04-06] MEDS ORDERED: POTASSIUM CHLORIDE 20 MEQ CONTROLLED RELEASE TAB PO ONE ×2 (12:00→16:00)
[2018-04-06] MEDS: METOPROLOL TARTRATE 25 MG TAB PO SCH ×2 (14:11→21:45)
[2018-04-06] MEDS: ASPIRIN EC 81 MG TABEC PO SCH (14:11)
--- NOTE | 2018-04-06 14:23 | RADRPT ---
EXAM DATE: 04/06/2018 2:09 PM EDT AGE/SEX: 87 years / Female INDICATIONS: Palpitations, evaluate new onset of A-fib, no shortness of breath, no chest pain at thi s time CLINICAL DATA: This is the patient's initial encounter. Patient reports that signs and symptoms have been present for 1 day and indicates a pain score of 0/10. MEDICAL/SURGICAL HISTORY: Anemia. rhabdomyolysisA-fib . COMPARISON: [facility] [place], CHEST SINGLE AP, 03/29/2015. . FINDINGS: A single AP view of the chest demonstrates the lungs to be symmetrically aerated without evidence of mass, infiltrate or effusion. The cardiomediastinal contours are unremarkable. Osseous structures a re intact. CONCLUSION: No acute disease Electronically signed by: Italo Thomas MD 04/06/2018 2:22 PM EDT
[2018-04-06 14:33] LABS: BILIRUBIN, URINE NEG (NEG); BLOOD, URINE MOD (NEG); GLUCOSE,URINE NEG (NEG); HYALINE CAST, URINE 2 /lpf (RARE); KETONE, URINE TRACE mg/dL (NEG); MUCUS URINE FEW /lpf (OCC); NITRITE,URINE NEG (NEG); SQUAMOUS EPITHELIAL CELL URINE <1 /hpf (0-5); URINE COLOR YELLOW (YELLW/STRAW); URINE LEUKOCYTE ESTERASE LARGE (NEG); WHITE BLOOD CELL CLUMPS RARE
[2018-04-06 14:35] LABS: BACTERIA, URINE MOD /hpf
--- NOTE | 2018-04-06 14:40 | HHI.HP ---
[facility] Service Family Medicine Primary Care Physician Jacob Diaz MD Admission Diagnosis Rhabdomyolysis Diagnoses: (1) Rhabdomyolysis (2) Falls (3) Parkinsonian features (4) Depressive disorder (5) FEN International Travel<30 Days: No Contact w/Intl Traveler<30days: No Known Affected Area: No History of Present Illness 87-year-old female presenting to the emergency department after a fall at home that appears to be a mechanical fall. Patient is a poor historian but states that she had a fall at home at approximately 5 PM yesterday evening and was unable to get up. She was on the ground until approximately 9 AM when her son found her and helped her up. She was placed in bed but was unable to ambulate on her own and so she was brought into the emergency department for further evaluation. She has a history of recurrent falls and is currently in independent living at [facility]. Over the last several months, she has fallen several times at home that she describes as mechanical falls. Her most recent fall yesterday, she denies hitting her head or losing consciousness. She has become more unstable and ataxic at home as well as significantly weaker and lethargic. This is been progressive for several months as have been her falls at home. Denies any other preceding symptoms, including dizziness, chest pain, shortness of breath. Denies any fever or chills, recent illness. This morning, she states that she feels well but continues to have some pain in her right shoulder. She does feel fatigued/weak but denies any fevers or chills , denies shortness of breath, denies peripheral edema, denies chest pain or palpitations. She was found to be in atrial fibrillation with an occasional rapid heart rate. Past Family Social History Past Medical History Parkinson's/Gait abnormality Re-current UTIs Depression Renal calculi with obstruction of right ureter and hospitalization for UTI 2014. Past Surgical History Bilateral cataract surgery Tonsillectomy in 1930 Partial hysterectomy 1969 Allergies: Coded Allergies: No Known Allergies (Unverified Adverse Reaction, Unknown, 04/05/18) Family History Father: at age 90 secondary to an infection Mother: at age 95 with Alzheimer's disease Siblings: one sister with dementia Children: two children alive and well Social History Living Situation: independent apartment at [facility] Education: 4 years of college Work history: [employer] for the [email or web address], retired at age 67 Tobacco: none Alcohol: occasionally Illicit drug use: none Physical Exam Vital Signs Vital Signs Date Time Temp Pulse Resp B/P (MAP) Pulse Ox O2 Delivery O2 Flow Rate FiO2 04/06/18 13:16 89 04/06/18 11:11 97.4 87 20 157/67 (97) 97 04/06/18 09:26 94 04/06/18 07:13 99.3 102 20 140/65 (90) 95 04/06/18 05:16 99.5 103 16 136/63 (87) 96 04/05/18 23:00 94 04/05/18 22:35 97.6 94 16 139/65 (89) 92 04/05/18 22:34 04/05/18 22:34 92 18 142/62 (88) 98 Room Air 04/05/18 19:33 92 18 121/59 (79) 99 Room Air 04/05/18 18:03 98.3 90 14 165/75 (105) 97 Physical Exam GENERAL: Frail-appearing, elderly female, lying in bed in no obvious distress SKIN: No rashes, or lesions. Cool and dry. Scattered ecchymoses on legs. HEAD: Atraumatic. Normocephalic. EYES: Pupils equal round and reactive. NECK: Trachea midline. No JVD or lymphadenopathy. Supple, nontender. CARDIOVASCULAR: Irregularly irregular and tachycardic rate with 2/6 systolic murmur. RESPIRATORY: Clear to auscultation. Breath sounds equal bilaterally. No wheezes , rales, or rhonchi. GASTROINTESTINAL: Abdomen soft, non-tender, nondistended. MUSCULOSKELETAL: Extremities without clubbing, cyanosis, or edema. No joint tenderness, effusion, or edema noted. No calf tenderness. NEUROLOGICAL: Awake and alert. Laboratory Laboratory Tests Test 04/05/18 18:00 04/05/18 18:20 04/06/18 06:50 04/06/18 09:23 White Blood Count 13.9 10.4 Red Blood Count 3.95 3.34 Hemoglobin 13.0 11.3 Hematocrit 38.7 32.7 Mean Corpuscular Volume 98.0 97.9 Mean Corpuscular Hemoglobin 33.0 33.7 Mean Corpuscular Hemoglobin Concent 33.7 34.5 Red Cell Distribution Width 13.3 13.4 Platelet Count 186 156 Mean Platelet Volume 8.2 8.4 Neutrophils (%) (Auto) 90.1 90.6 Lymphocytes (%) (Auto) 2.7 3.2 Monocytes (%) (Auto) 7.1 6.1 Eosinophils (%) (Auto) 0.0 0.0 Basophils (%) (Auto) 0.1 0.1 Neutrophils # (Auto) 12.5 9.5 Lymphocytes # (Auto) 0.4 0.3 Monocytes # (Auto) 1.0 0.6 Eosinophils # (Auto) 0.0 0.0 Basophils # (Auto) 0.0 0.0 CBC Comment DIFF FINAL DIFF FINAL Differential Comment Prothrombin Time 11.9 Prothromb Time International Ratio 1.2 Activated Partial Thromboplast Time 27.1 Blood Urea Nitrogen 21 17 Creatinine 0.79 0.65 Random Glucose 118 86 Total Protein 7.8 6.5 Albumin 3.4 2.8 Calcium Level 9.3 8.3 Alkaline Phosphatase 160 134 Aspartate Amino Transf (AST/SGOT) 90 63 Alanine Aminotransferase (ALT/SGPT) 11 21 Total Bilirubin 1.0 0.7 Sodium Level 138 142 Potassium Level 3.3 2.9 Chloride Level 100 108 Carbon Dioxide Level 23.8 19.6 Anion Gap 14 14 Estimat Glomerular Filtration Rate 69 86 Total Creatine Kinase 2030 1012 Creatine Kinase MB 16.1 4.7 Creatine Kinase MB % 0.8 0.5 Thyroid Stimulating Hormone 3rd Gen 0.398 Result Diagram: 04/06/1892204/06/18 0923 Imaging Last Impressions Shoulder X-Ray 04/05/18 1824 Signed Impressions: CONCLUSION: 1. No acute fracture or dislocation. 2. Mild degenerative changes involving the right acromioclavicular joint. Caprini VTE Risk Assessment Caprini VTE Risk Assessment: Mod/High Risk (score >= 2) Caprini Risk Assessment Model Point Value = 1 Point Value = 2 Point Value = 3 Point Value = 5 Age 41-60 Minor surgery BMI > 25 kg/m2 Swollen legs Varicose veins or History of unexplained or recurrent spontaneous Oral contraceptives or hormone replacement Sepsis (< 1 month) Serious lung disease, including pneumonia (< 1 month) Abnormal pulmonary function Acute myocardial infarction Congestive heart failure (< 1 month) History of inflammatory bowel disease Medical patient at bed rest Age 61-74 Arthroscopic surgery Major open surgery (> 45 min) Laparoscopic surgery (> 45 min) Malignancy Confined to bed (> 72 hours) Immobilizing plaster cast Central venous access Age >= 75 History of VTE Family history of VTE Factor V Leiden Prothrombin [id number] Lupus anticoagulant Anticardiolipin antibodies Elevated serum homocysteine Heparin-induced thrombocytopenia Other congenital or acquired thrombophilia Stroke (< 1 month) Elective arthroplasty Hip, pelvis, or leg fracture Acute spinal cord injury (< 1 month) Prophylaxis Regimen Total Risk Factor Score Risk Level Prophylaxis Regimen 0-1 Low Early ambulation 2 Moderate Order ONE of the following: *Sequential Compression Device (SCD) *Heparin 5000 units SQ BID 3-4 Higher Order ONE of the following medications: *Heparin 5000 units SQ TID *Enoxaparin/Lovenox 40 mg SQ daily (WT < 150 kg, CrCl > 30 mL/min) *Enoxaparin/Lovenox 30 mg SQ daily (WT < 150 kg, CrCl > 10-29 mL/min) *Enoxaparin/Lovenox 30 mg SQ BID (WT < 150 kg, CrCl > 30 mL/min) AND/OR *Sequential Compression Device (SCD) 5 or more Highest Order ONE of the following medications: *Heparin 5000 units SQ TID (Preferred with Epidurals) *Enoxaparin/Lovenox 40 mg SQ daily (WT < 150 kg, CrCl > 30 mL/min) *Enoxaparin/Lovenox 30 mg SQ daily (WT < 150 kg, CrCl > 10-29 mL/min) *Enoxaparin/Lovenox 30 mg SQ BID (WT < 150 kg, CrCl > 30 mL/min) AND *Sequential Compression Device (SCD) Assessment and Plan Assessment and Plan 79-year-old female with history of Parkinson's, depression, recurrent falls presents after a fall and being on the ground for night. Found to have rhabdomyolysis. Will admit for IV hydration and observation. Problem List: (1) Rhabdomyolysis ICD Codes: M62.82 - Rhabdomyolysis Plan: Found to be in rhabdomyolysis with a creatinine of 2030 on admission -Received 1.5 L normal saline bolus in the emergency department followed by 1.5 times normal maintenance IV fluids -Repeat creatinine kinase 1012 today Renal function has been normal with a creatinine of 0.65 and BUN of 17 -Monitor kidney function -Monitor I/O -Telemetry (2) Atrial fibrillation ICD Codes: I48.91 - Unspecified atrial fibrillation Status: Acute Plan: Patient found to be in atrial fibrillation on EKG and exam, this is new for her Workup to include: 2D echocardiogram ordered and pending Troponins ordered and pending Chest x-ray ordered and pending TSH ordered and pending Patient is a poor candidate for anticoagulation as she has had several recurrent falls and instability, we will have her take an aspirin daily Rate control with metoprolol 25 mg p.o. 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 Currently on Sinemet. Patient was several falls over the last few months. Patient does not remember much about this fall, but denies any preemptive symptoms -UA pending to rule out infection -Bed rest -Physical therapy evaluation -Recommend inpatient physical therapy -Continue home Sinemet -Neuro checks -Tylenol PRN pain -Telemetry (4) Parkinsonian features ICD Codes: R25.9 - Parkinsonian features Status: Acute Plan: See plan above for falls Continue home Sinemet Permanent Comment: Affecting gait Last Edited By: Jcaob Diaz on Dec 22, 2013 11:26 (5) Depressive disorder ICD Codes: F32.9 - Depressive disorder Status: Chronic Plan: Stable Continue home Effexor & Ativan PRN (6) FEN Status: Acute Plan: Fluids: NS @ 140mls/hr Electrolytes: monitor, replace PRN Nutrition: regular diet DVT ppx: Lovenox Physician Certification 2 Midnight Certification Type: Admission for Inpatient Services Order for Inpatient Services The services are ordered in accordance with Medicare regulations or non- Medicare payer requirements, as applicable. In the case of services not specified as inpatient-only, they are appropriately provided as inpatient services in accordance with the 2-midnight benchmark. Estimated LOS (days): 2 2 days is the estimated time the patient will need to remain in the hospital, assuming treatment plan goals are met and no additional complications. Post-Hospital Plan: Not yet determined Problem Qualifiers (1) Rhabdomyolysis: (2) Falls: Qualified Codes: W19.XXXD - Unspecified fall, subsequent encounter (3) Atrial fibrillation: Qualified Codes: I48.1 - Persistent atrial fibrillation Luis Manuel Jorgensen MD Apr 06, 2018 14:40
[2018-04-06] MEDS: cefTRIAXone INJ 1,000 MG in SODIUM CHLORIDE 0.9% INJ 100 ML IV SCH (17:18)
[2018-04-06 18:48] LABS: BICARBONATE 22.8 MEQ/L (21.0-32.0); CALCIUM 7.9 MG/DL (8.5-10.1); CREATININE 0.65 MG/DL (0.50-1.00); MAGNESIUM 1.8 MG/DL (1.5-2.5)
[2018-04-06 18:51] LABS: TROPONIN I 0.09 NG/ML (0.02-0.05)
--- NOTE | 2018-04-06 19:27 | HHI.FPPN ---
Addendum to progress note ADDENDUM Reason for addendum: Additonal documentation Additional information Troponin this afternoon 0.09. No chest pain reported today. Afib with periodic RVR on telemetry. Initial EKG w/o ACS concerns; 2nd EKG with changing baseline in lateral leads making interpretation difficult. Suspect likely related to RVR; no ACS suspected -Will repeat EKG -Will continue trending Troponin/ EKG q 6hrs -If concern for NSTEMI grows, will start Heparin vs therapeutic Lovenox as renal function improved Jordan Pendleton MD R3 Apr 06, 2018 19:27
[2018-04-06] MEDS: ENOXAPARIN SODIUM 40 MG/0.4 ML SYRINGE SQ SCH (21:44)
[2018-04-06] MEDS: LATANOPROST 0.005% OPHT SOLN 2.5 ML BTL EACH EYE SCH (21:45)
[2018-04-07] VITALS (11 sets, daily range): BP systolic 149–174; BP diastolic 66–81; PULSE 67–77; RESP 16–18; TEMP 98.7–99.5; O2SAT 88–97
[2018-04-07] MEDS: SODIUM CHLOR 0.9% 1000 ML INJ 1,000 ML IV SCH ×3 (03:34→17:48)
[2018-04-07 07:13] LABS: AUTOMATED NEUTROPHIL # 6.1 TH/MM3 (1.8-7.7); BASOPHIL % 0.1 % (0.0-2.0); EOSINOPHIL % 0.1 % (0.0-4.0); HEMATOCRIT 31.4 % (35.0-46.0); HEMOGLOBIN 10.8 GM/DL (11.6-15.3); LYMPH % 5.8 % (9.0-44.0); LYMPHOCYTE # 0.4 TH/MM3 (1.0-4.8); MEAN CELL VOLUME 97.9 FL (80.0-100.0); MEAN CORPUSCULAR HEMOGLOBIN 33.6 PG (27.0-34.0); MEAN CORPUSCULAR HGB CONC 34.3 % (32.0-36.0); MEAN PLATELET VOLUME 8.4 FL (7.0-11.0); MONO % 7.8 % (0.0-8.0); MONOCYTE # 0.6 TH/MM3 (0-0.9); NEUT % 86.2 % (16.0-70.0); PLATELET COUNT 120 TH/MM3 (150-450); RED CELL DISTRIBUTION WIDTH 13.5 % (11.6-17.2); WHITE BLOOD COUNT 7.1 TH/MM3 (4.0-11.0)
[2018-04-07 07:40] LABS: ALBUMIN 2.4 GM/DL (3.4-5.0); AST (GOT) 60 U/L (15-37); BICARBONATE 20.6 MEQ/L (21.0-32.0); BLOOD UREA NITROGEN 16 MG/DL (7-18); CALCIUM 8.2 MG/DL (8.5-10.1); CHLORIDE 112 MEQ/L (98-107); CREATININE 0.64 MG/DL (0.50-1.00); GLOMERULAR FILTRATION RATE 88 ML/MIN (>89); GLUCOSE,RANDOM 101 MG/DL (74-106); SODIUM (NA) 143 MEQ/L (136-145)
[2018-04-07 07:46] LABS: ALKALINE PHOSPHATASE 109 U/L (45-117); ALT (GPT) 37 U/L (10-53); TOTAL BILIRUBIN ADULT 0.5 MG/DL (0.2-1.0); TROPONIN I 0.06 NG/ML (0.02-0.05)
[2018-04-07] MEDS: SODIUM CHLORIDE 0.9% FLUSH 10 ML FLUSH IV FLUSH SCH ×2 (09:00→20:43)
[2018-04-07] MEDS: VENLAFAXINE HCL XR 75 MG CAP PO SCH (09:45)
[2018-04-07] MEDS: CHOLECALCIFEROL (VIT D3) 1000 UNIT TAB PO SCH (09:45)
[2018-04-07] MEDS: METOPROLOL TARTRATE 25 MG TAB PO SCH (09:45)
[2018-04-07] MEDS: DOCUSATE SODIUM 50 MG/SENNA 8.6 MG TAB PO SCH (09:45)
[2018-04-07] MEDS: CARBIDOPA/LEVODOPA 25 MG/100 MG TAB PO SCH ×3 (09:46→17:45)
[2018-04-07] MEDS: ASPIRIN EC 81 MG TABEC PO SCH (09:46)
[2018-04-07] MEDS: DORZOLAMIDE 2% OPTH SOLN 200 DROP/10 ML BTLO EACH EYE SCH ×2 (09:47→20:42)
[2018-04-07] MEDS: DOCUSATE SODIUM 100 MG CAP PO SCH (10:22)
--- NOTE | 2018-04-07 10:27 | HHI.FPPN ---
Subjective Remarks Mrs. Kumari was afebrile with normal HR and HTN (max SBP 174) overnight. Telemetry reviewed; patient went into brief RVR to 140's-150's bpm multiple times overnight but this was transient. Per nursing staff at bedside, patient became hypoxic to 86% while transferring to toilet this morning; she was put on 2 L O2 via NC. Patient does not report symptoms overnight; she is eating breakfast normally. She reports some chronic constipation and requests Docusate. Patient accompanied by her son and daughter in law this morning. (Jordan Pendleton MD R3) Objective Vitals Vital Signs Date Time Temp Pulse Resp B/P (MAP) Pulse Ox O2 Delivery O2 Flow Rate FiO2 04/07/18 09:40 93 Nasal Cannula 2.00 04/07/18 09:12 98.7 77 16 174/81 (112) 94 04/07/18 07:33 75 04/07/18 02:59 98.9 69 16 152/71 (98) 88 04/06/18 22:59 97.8 64 16 127/61 (83) 96 04/06/18 19:50 98.3 68 16 106/55 (72) 95 04/06/18 19:00 71 04/06/18 16:37 79 04/06/18 15:41 97.4 80 16 147/68 (94) 97 04/06/18 13:16 89 04/06/18 11:11 97.4 87 20 157/67 (97) 97 I/O 04/06/18 04/06/18 04/06/18 04/07/18 04/07/18 04/07/18 07:00 15:00 23:00 07:00 15:00 23:00 Intake Total 340 ml 1780 ml Balance 340 ml 1780 ml Intake Oral 240 ml 100 ml IV Total 100 ml 1680 ml # Voids 2 3 # Bowel Movements 1 (Jordan Pendleton MD R3) Result Diagram: 04/07/18 0648 04/07/18 0648 Imaging Last Impressions Chest X-Ray 04/06/18 0000 Signed Impressions: CONCLUSION: No acute disease Shoulder X-Ray 04/05/18 1824 Signed Impressions: CONCLUSION: 1. No acute fracture or dislocation. 2. Mild degenerative changes involving the right acromioclavicular joint. Objective Remarks GENERAL: Frail-appearing, elderly female, lying in bed in no obvious distress SKIN: No rashes, or lesions. Cool and dry. Scattered ecchymoses on legs. EYES: EOM grossly I. NECK: No lymphadenopathy. Supple, nontender. CARDIOVASCULAR: Irregularly irregular; rate <100 with 2/6 systolic murmur. RESPIRATORY: Clear to auscultation. Breath sounds equal bilaterally. No wheezes to auscultation GASTROINTESTINAL: Abdomen soft, non-tender, nondistended. MUSCULOSKELETAL: Extremities without edema. No joint tenderness, effusion, or edema noted. No calf tenderness. NEUROLOGICAL: Awake and alert. (Jordan Pendleton MD R3) A/P Assessment and Plan 79-year-old female with history of Parkinson's, depression, recurrent falls presents after a fall and being on the ground for night. Found to have rhabdomyolysis and Afib with RVR Discharge Planning Anticipate discharge to SNF (Jordan Pendleton MD R3) Attending Attestation Patient examined independently and case discussed with resident physician I have read the above note and agree with the assessment/plan as discussed with me I was involved in all medical decision making for this patient Luis Manuel Jorgensen MD (Luis Manuel Jorgensen MD) Problem List: (1) Rhabdomyolysis ICD Codes: M62.82 - Rhabdomyolysis Plan: Found to be in rhabdomyolysis with a creatinine of 2030 on admission Received 1.5 L normal saline bolus in the emergency department followed by 1.5 times normal maintenance IV fluids Labs: CK 2030 on admission -> 1012 (6/4) Cr wnl (0.79 on admission-> 0.65 (6/4) -Continue NS at 140ml/hr -Monitor kidney function -Monitor I/O (2) Atrial fibrillation ICD Codes: I48.91 - Unspecified atrial fibrillation Status: Acute Plan: Impression: Patient found to be in atrial fibrillation on EKG and exam, this is new for her. [id number] 3+; frequent falls at home On telemetry, patient intermittently goes into RVR to ~140bpm -TSH wnl -CXR unremarkable -ACS rule-out -EKG's w/o ST changes -Troponins- 0.09-> 0.07-> 0.06; suspect secondary to tachycardia and / or rhabdomyolysis -2D echocardiogram ordered and pending -Continue Telemetry -Rate control -Patient started on Metoprolol 25mg BID; will increase Anticoagulation -Discussion regarding the benefits and risks of anticoagulation were made with patient and her son. Due to recent falls and PT recommendation that patient has current unsafe gait/balance deficits, it was agreed upon that patient would be unsafe for anticoagulation due to risk of serious bleed. -We agreed to continuing patient's home ASA 81mg (3) Falls ICD Codes: W19.XXXA - Unspecified fall, initial encounter Plan: Patient with history of ataxic gait with parkinsonian symptoms. Currently on Sinemet. Patient was several falls over the last few months. Patient does not remember much about this fall, but denies any preemptive symptoms -OOB with assistance -Physical therapy evaluation -Recommend inpatient physical therapy -OT evaluation- rehabilitation recommended -Continue home Sinemet (4) Parkinsonian features ICD Codes: R25.9 - Parkinsonian features Status: Acute Plan: See plan above for falls Continue home Sinemet Permanent Comment: Affecting gait Last Edited By: Jacob Diaz on Dec 22, 2013 11:26 (5) UTI (urinary tract infection) ICD Codes: N39.0 - Urinary tract infection, site not specified Status: Acute Plan: Impression: Patient with reported history of frequent UTI's. UA on admission with Large leuk esterase, 83 WBC, mod bacteria -Will monitor urine culture -Patient started on Rocephin 1gm daily 04/06 (6) Hypoxia ICD Codes: R09.02 - Hypoxemia Status: Acute Plan: Impression: O2 saturations to mid 80's when transferring. Coexistent intermittent RVR CXR 04/06 unremarkable. -Continue O2 supplementation as needed -Will start incentive spirometry -Will re-evaluate after echo this morning (7) Depressive disorder ICD Codes: F32.9 - Depressive disorder Status: Chronic Plan: Stable Continue home Effexor & Ativan PRN (8) FEN Status: Acute Plan: Fluids: NS @ 140mls/hr Electrolytes: monitor, replace PRN Nutrition: regular diet DVT ppx: Lovenox 40mg daily (Jordan Pendleton MD R3) Problem Qualifiers (1) Rhabdomyolysis: (2) Atrial fibrillation: Qualified Codes: I48.1 - Persistent atrial fibrillation (3) Falls: Qualified Codes: W19.XXXD - Unspecified fall, subsequent encounter Jordan Pendleton MD R3 Apr 07, 2018 10:27 Luis Manuel Jorgensen MD Apr 07, 2018 15:43
[2018-04-07] MEDS ORDERED: METOPROLOL TARTRATE 25 MG TAB PO ONE (11:45)
--- NOTE | 2018-04-07 15:32 | EKG ---
Date Performed: 04/06/2018 Time Performed: 10:24:35 PTAGE: 87 years EKG: Sinus rhythm with PACs and PVCs POSSIBLE RIGHT VENTRICULAR CONDUCTION DELAY LEFT ANTERIOR FASCICULAR BLOCK POSSIB LE LEFT VENTRICULAR HYPERTROPHY POSSIBLE SEPTAL MYOCARDIAL INFARCTION PROBABLE LATERAL MYOCARDIAL INF ARCTION ABNORMAL ECG PREVIOUS TRACING : 04/05/[address] segment depression. Since the prior tracing, there has been an increase in heart rate. The PVCs are new. There has been an increase in th e lateral ST segment changes. DOCTOR: Cher Soriano Interpretating Date/Time 04/07/2018 15:31:25
--- NOTE | 2018-04-07 15:32 | EKG ---
Date Performed: 04/07/2018 Time Performed: 01:01:14 PTAGE: 87 years EKG: Sinus rhythm WITH FIRST DEGREE AV BLOCK MARKED LEFT AXIS DEVIATION POSSIBLE RIGHT VENTRICULAR CONDUCTION DELAY SE PTAL MYOCARDIAL INFARCTION ABNORMAL ECG PREVIOUS TRACING : 04/06/2018 10.24 Since the prior tracing, the PACs and PVCs have resolved. T he lateral ST segment changes have resolved. Clinical correlation is advised. DOCTOR: Cher Soriano Interpretating Date/Time 04/07/2018 15:31:58
--- NOTE | 2018-04-07 16:42 | HHI.DCPOC ---
Discharge Care Plan Diagnosis: (1) Falls (2) Rhabdomyolysis (3) Atrial fibrillation (4) UTI (urinary tract infection) (5) Hypoxia Goals to Promote Your Health * To prevent worsening of your condition and complications * To maintain your health at the optimal level Directions to Meet Your Goals Take your medications as prescribed Follow your dietary instruction Follow activity as directed Keep your appointments as scheduled Take your immunizations and boosters as scheduled If your symptoms worsen call your PCP, if no PCP go to Urgent Care Center or Emergency Room Smoking is Dangerous to Your Health. Avoid second hand smoke Call the 24-hour hour crisis hotline for domestic abuse at Jordan Pendleton MD R3 Apr 07, 2018 16:42
[2018-04-07] MEDS ORDERED: METO-309 PO (16:45)
[2018-04-07] MEDS ORDERED: ECASA81 PO (16:45)
[2018-04-07] MEDS ORDERED: CHOL1000 PO (16:45)
--- NOTE | 2018-04-07 16:56 | EKG ---
Date Performed: 04/07/2018 Time Performed: 04:49:19 PTAGE: 87 years EKG: Sinus rhythm WITH OCCASIONAL SUPRAVENTRICULAR PREMATURE COMPLEXES POSSIBLE RIGHT VENTRICULAR CONDUCTION DELAY LEF T ANTERIOR FASCICULAR BLOCK SEPTAL MYOCARDIAL INFARCTION POSSIBLE LATERAL MYOCARDIAL INFARCTION ABNOR MAL ECG Since the PREVIOUS TRACING , no significant change noted PREVIOUS TRACIN04/07/2018 01.01 DOCTOR: Cher Soriano Interpretating Date/Time 04/07/2018 16:54:00
[2018-04-07] MEDS: cefTRIAXone INJ 1,000 MG in SODIUM CHLORIDE 0.9% INJ 100 ML IV SCH (17:48)
--- NOTE | 2018-04-07 18:10 | ECHRPT ---
Indication: ATRIAL FIB/FLUTTER CONCLUSIONS The left ventricular systolic function is mildly reduced with an estimated ejection fraction in the range of 45- 50%. Rryl-[id number]-[id number] mitral valve regurgitation. Moderate aortic valve regurgitation. There is mild tricuspid valve regurgitation. Trivial pulmonary valve regurgitation. A small left sided pericaridal effusion noted. BP: 155 / 70 HR: 69 Rhythm: Sinus MEASUREMENTS (Male / Female) Normal Values Technical Quality:Fair 2D ECHO LV Diastolic Diameter PLAX 4.0 cm 4.2 - 5.9 / 3.9 - 5.3 cm LV Systolic Diameter PLAX 3.0 cm IVS Diastolic Thickness 1.0 cm 0.6 - 1.0 / 0.6 - 0.9 cm LVPW Diastolic Thickness 1.0 cm 0.6 - 1.0 / 0.6 - 0.9 cm LV Relative Wall Thickness 0.5 RV Internal Dim ED PLAX 1.9 cm LVOT Diameter 2.1 cm Aortic Root Diameter 3.1 cm LA Systolic Diameter LX 3.0 cm 3.0 - 4.0 / 2.7 - 3.8 cm M-MODE AV Cusp Separation MM 1.7 cm DOPPLER AV Peak Velocity 146.0 cm/s AV Peak Gradient 8.5 mmHg AV Mean Gradient 4.0 mmHg AV Velocity Time Integral 24.1 cm AI Peak Velocity 478.0 cm/s AI Peak Gradient 91.4 mmHg AI Pressure Half Time 404.0 ms LVOT Peak Velocity 107.0 cm/s LVOT Peak Gradient 4.6 mmHg LVOT Velocity Time Integral 19.1 cm AV Area Cont Eq vti 2.7 cm AV Area Cont Eq pk 2.5 cm Mitral E Point Velocity 112.0 cm/s Mitral A Point Velocity 43.4 cm/s Mitral E to A Ratio 2.6 LV E' Lateral Velocity 11.4 cm/s Mitral E to LV E' Lateral Ratio 9.8 LV E' Septal Velocity 7.1 cm/s Mitral E to LV E' Septal Ratio 15.7 TR Peak Velocity 242.0 cm/s TR Peak Gradient 23.4 mmHg PV Peak Velocity 63.2 cm/s PV Peak Gradient 1.6 mmHg FINDINGS LEFT VENTRICLE Normal left ventricular size. Wall thickness is measured at the upper limits of normal. The left ventricular systolic function is mildly reduced with an estimated ejection fraction in the range of 45- 50%. RIGHT VENTRICLE Normal right ventricular size and systolic function. LEFT ATRIUM The left atrial size is normal. RIGHT ATRIUM The right atrial size is normal. ATRIAL SEPTUM No atrial level shunt is demonstrated by color flow Doppler interrogation. AORTA The aortic root and proximal ascending aorta are normal in size on limited imaging. MITRAL VALVE Structurally normal mitral valve. No mitral valve stenosis. [id number]-[id number] mitral valve regurgitation. AORTIC VALVE Aortic valve sclerosis is present. Moderate aortic valve regurgitation. AI pressure 1/2t 404 ms No aortic valve stenosis. TRICUSPID VALVE Structurally normal tricuspid valve. There is mild tricuspid valve regurgitation. The estimated pulmonary arterial pressure is 33 mmHg. PULMONARY VALVE Trivial pulmonary valve regurgitation. VESSELS The inferior vena cava was not well visualized. PERICARDIUM A small left sided pericaridal effusion noted. Gerald Kingsley DO (Electronically Signed) Final Date:07 April 2018 18:09
--- NOTE | 2018-04-07 19:30 | RADRPT ---
EXAM DATE: 04/07/2018 6:37 PM EDT AGE/SEX: 87 years / Female INDICATIONS: Shortness of breath. CLINICAL DATA: This is the patient's initial encounter. Patient reports that signs and symptoms have been present for 1 day and indicates a pain score of Nonresponsive. MEDICAL/SURGICAL HISTORY: . Anemia. Rhabdomyolysis. A-fib None. COMPARISON: No prior [facility] exams available for comparison. FINDINGS: There are patchy bilateral pulmonary infiltrates and cardiomegaly. Aortic calcifications are noted. T here are bilateral pleural effusions. Osseous structures are intact. CONCLUSION: Bilateral infiltrates and effusions. Electronically signed by: Shamir Alcantar MD 04/07/2018 7:28 PM EDT
[2018-04-07] MEDS: METOPROLOL TARTRATE 50 MG TAB PO SCH (20:42)
[2018-04-07] MEDS: ENOXAPARIN SODIUM 40 MG/0.4 ML SYRINGE SQ SCH (20:43)
[2018-04-07] MEDS ORDERED: RESP: ALBUTEROL 2.5 MG/3 ML NEB (PRN) NEB (21:15)
[2018-04-07] MEDS ORDERED: AZITHROMYCIN 250 MG TAB PO ONE (21:15)
[2018-04-07] MEDS ORDERED: Vancomycin Consult Pharmacy 1 EA OTHER SCH (21:15)
[2018-04-07] MEDS: RESP: ALBUTEROL 2.5 MG/IPRATROPIUM 0.5 MG NEB (SCH) NEB (21:15)
[2018-04-07] MEDS: LATANOPROST 0.005% OPHT SOLN 2.5 ML BTL EACH EYE SCH (21:51)
[2018-04-07] MEDS: PIPERACIL-TAZO 4.5 GM PREMIX 100 ML IV SCH (21:51)
[2018-04-07] MEDS ORDERED: VANCOMYCIN INJ 1,250 MG in SODIUM CHLOR 0.9% 250 ML INJ 250 ML IV ONE (22:30)
[2018-04-08] VITALS (7 sets, daily range): BP systolic 132–163; BP diastolic 63–78; PULSE 58–87; RESP 16–18; TEMP 97.5–99.2; O2SAT 90–97
[2018-04-08] MEDS: SODIUM CHLOR 0.9% 1000 ML INJ 1,000 ML IV SCH ×2 (01:10→10:39)
[2018-04-08] MEDS: PIPERACIL-TAZO 4.5 GM PREMIX 100 ML IV SCH ×2 (05:07→10:39)
[2018-04-08 05:22] LABS: AUTOMATED NEUTROPHIL # 5.2 TH/MM3 (1.8-7.7); BASOPHIL % 0.1 % (0.0-2.0); EOSINOPHIL % 0.7 % (0.0-4.0); HEMATOCRIT 29.2 % (35.0-46.0); HEMOGLOBIN 10.1 GM/DL (11.6-15.3); LYMPH % 7.6 % (9.0-44.0); LYMPHOCYTE # 0.5 TH/MM3 (1.0-4.8); MEAN CELL VOLUME 97.6 FL (80.0-100.0); MEAN CORPUSCULAR HEMOGLOBIN 33.8 PG (27.0-34.0); MEAN CORPUSCULAR HGB CONC 34.7 % (32.0-36.0); MONO % 11.4 % (0.0-8.0); MONOCYTE # 0.7 TH/MM3 (0-0.9); NEUT % 80.2 % (16.0-70.0); PLATELET COUNT 111 TH/MM3 (150-450); RED CELL DISTRIBUTION WIDTH 13.6 % (11.6-17.2); WHITE BLOOD COUNT 6.4 TH/MM3 (4.0-11.0)
[2018-04-08 05:28] LABS: ALBUMIN 2.1 GM/DL (3.4-5.0); AST (GOT) 63 U/L (15-37); BICARBONATE 19.6 MEQ/L (21.0-32.0); BLOOD UREA NITROGEN 14 MG/DL (7-18); CALCIUM 7.6 MG/DL (8.5-10.1); CHLORIDE 111 MEQ/L (98-107); GLOMERULAR FILTRATION RATE 94 ML/MIN (>89); GLUCOSE,RANDOM 94 MG/DL (74-106); SODIUM (NA) 142 MEQ/L (136-145)
[2018-04-08 05:30] LABS: ALT (GPT) 21 U/L (10-53)
[2018-04-08 05:31] LABS: ALKALINE PHOSPHATASE 103 U/L (45-117); TOTAL BILIRUBIN ADULT 0.5 MG/DL (0.2-1.0); TOTAL PROTEIN 5.6 GM/DL (6.4-8.2)
[2018-04-08] MEDS ORDERED: POTASSIUM CHLORIDE 10 MEQ CONTROLLED RELEASE TAB PO ONE (08:00)
[2018-04-08] MEDS: CHOLECALCIFEROL (VIT D3) 1000 UNIT TAB PO SCH (08:33)
[2018-04-08] MEDS: DOCUSATE SODIUM 100 MG CAP PO SCH (08:33)
[2018-04-08] MEDS: CARBIDOPA/LEVODOPA 25 MG/100 MG TAB PO SCH ×3 (08:33→17:55)
[2018-04-08] MEDS: VENLAFAXINE HCL XR 75 MG CAP PO SCH (08:34)
[2018-04-08] MEDS: METOPROLOL TARTRATE 50 MG TAB PO SCH ×2 (08:34→21:54)
[2018-04-08] MEDS: ASPIRIN EC 81 MG TABEC PO SCH (08:34)
[2018-04-08] MEDS: SODIUM CHLORIDE 0.9% FLUSH 10 ML FLUSH IV FLUSH SCH ×2 (08:35→21:55)
[2018-04-08] MEDS: DORZOLAMIDE 2% OPTH SOLN 200 DROP/10 ML BTLO EACH EYE SCH ×2 (08:35→21:55)
[2018-04-08] MEDS: RESP: ALBUTEROL 2.5 MG/IPRATROPIUM 0.5 MG NEB (SCH) NEB ×4 (09:01→20:22)
--- NOTE | 2018-04-08 10:44 | HHI.FPPN ---
Subjective Remarks Patient interviewed with the son at the bedside. The son reports improvement in her symptoms and energy level from yesterday. Urine microbiology does show ESBL. The patient was started on Zosyn last night for pneumonia on x-ray. She was also given vancomycin and azithromycin. Patient states it is difficult for her to tell if she is getting better while in the hospital. She thinks she is relatively the same. She denies chest pain , nausea, vomiting, shortness of breath, fever. (Sudhir Healy MD R3) Objective Vitals Vital Signs Date Time Temp Pulse Resp B/P (MAP) Pulse Ox O2 Delivery O2 Flow Rate FiO2 04/08/18 09:01 97 Nasal Cannula 3.00 04/08/18 08:00 98.1 73 16 163/78 (106) 95 04/08/18 08:00 72 04/08/18 07:41 93 Nasal Cannula 4.00 04/08/18 02:53 98.8 77 16 151/67 (95) 90 04/07/18 22:40 98.9 68 16 149/66 (93) 90 04/07/18 20:00 90 3.00 04/07/18 20:00 68 04/07/18 19:33 99.5 70 16 154/75 (101) 93 04/07/18 19:29 97 Nasal Cannula 2.00 04/07/18 18:34 97 2.00 04/07/18 16:07 70 04/07/18 14:32 98.7 69 18 155/70 (98) 93 04/07/18 12:32 67 I/O 04/07/18 04/07/18 04/07/18 04/08/18 04/08/18 04/08/18 07:00 15:00 23:00 07:00 15:00 23:00 Intake Total 1780 ml 1000 ml 100 ml 1600 ml Balance 1780 ml 1000 ml 100 ml 1600 ml Intake Oral 100 ml 240 ml IV Total 1680 ml 1000 ml 100 ml 1360 ml # Voids 3 2 3 (Sudhir Healy MD R3) Result Diagram: 04/08/1841504/08/18415 Objective Remarks GENERAL: Frail-appearing, elderly female, lying in bed in no obvious distress SKIN: No rashes, or lesions. Cool and dry. Scattered ecchymoses on legs. EYES: EOM grossly I. NECK: No lymphadenopathy. Supple, nontender. CARDIOVASCULAR: Irregularly irregular; rate <100 with 2/6 systolic murmur. RESPIRATORY: Clear to auscultation. Breath sounds equal bilaterally. No wheezes to auscultation GASTROINTESTINAL: Abdomen soft, non-tender, nondistended. MUSCULOSKELETAL: Extremities without edema. No joint tenderness, effusion, or edema noted. No calf tenderness. NEUROLOGICAL: Awake and alert. (Sudhir Healy MD R3) A/P Assessment and Plan 79-year-old female with history of Parkinson's, depression, recurrent falls presents after a fall and being on the ground for night. Found to have rhabdomyolysis and Afib with RVR Discharge Planning Anticipate discharge to SNF PT recommends PT at rehab. (Sudhir Healy MD R3) Attending Attestation Medical rounds performed with Dr Healy Patient seen and examined Agree with contents of above note In volved with medical decisions See Orders (Dylon Beach MD) Problem List: (1) UTI (urinary tract infection) ICD Codes: N39.0 - Urinary tract infection, site not specified Status: Acute Plan: Urine microbiology showing ESBL Infectious disease consulted Ultrasound kidneys Started imipenem 500 mg IV every 6 hours Previous antibiotics: -Patient started on Rocephin 1gm daily 04/06-04/07 Given 3 doses of Zosyn on 04/07-04/08 (2) Pneumonia ICD Codes: J18.9 - Pneumonia, unspecified organism Status: Acute Plan: Continue imipenem as above. Continue incentive spirometry. Continue oxygen as needed for sats greater than 92. (3) Atrial fibrillation ICD Codes: I48.91 - Unspecified atrial fibrillation Status: Acute Plan: Impression: Patient found to be in atrial fibrillation on EKG and exam, this is new for her. [id number] 3+; frequent falls at home -2D echocardiogram-ejection fraction 45-50%. -Continue Telemetry Continue metoprolol 50 mg p.o. every 12 hours Anticoagulation -Discussion regarding the benefits and risks of anticoagulation were made with patient and her son. Due to recent falls and PT recommendation that patient has current unsafe gait/balance deficits, it was agreed upon that patient would be unsafe for anticoagulation due to risk of serious bleed. -We agreed to continuing patient's home ASA 81mg (4) Falls ICD Codes: W19.XXXA - Unspecified fall, initial encounter Plan: Patient with history of ataxic gait with parkinsonian symptoms. Currently on Sinemet. -OOB with assistance -Physical therapy evaluation-Recommend inpatient physical therapy -OT evaluation- rehabilitation recommended -Continue home Sinemet (5) Parkinsonian features ICD Codes: R25.9 - Parkinsonian features Status: Acute Plan: See plan above for falls Continue home Sinemet Permanent Comment: Affecting gait Last Edited By: Jacob Diaz on Dec 22, 2013 11:26 (6) Hypoxia ICD Codes: R09.02 - Hypoxemia Status: Acute Plan: Impression: O2 saturations to mid 80's when transferring. Coexistent intermittent RVR CXR 04/06 unremarkable. Chest x-ray 04/08 shows bilateral infiltrates as above. -Continue O2 supplementation as needed -incentive spirometry (7) Depressive disorder ICD Codes: F32.9 - Depressive disorder Status: Chronic Plan: Stable Continue home Effexor & Ativan PRN (8) FEN Status: Acute Plan: Fluids: tolerating PO Electrolytes: monitor, replace PRN Nutrition: regular diet DVT ppx: Lovenox 40mg daily (9) Rhabdomyolysis ICD Codes: M62.82 - Rhabdomyolysis Status: Resolved Plan: Found to be in rhabdomyolysis with a creatinine of 2030 on admission. 604 on 04/07 Resolved with fluid hydration (Sudhir Healy MD R3) Problem Qualifiers (1) UTI (urinary tract infection): Qualified Codes: N30.00 - Acute cystitis without hematuria (2) Pneumonia: Qualified Codes: J18.9 - Pneumonia, unspecified organism (3) Atrial fibrillation: Qualified Codes: I48.1 - Persistent atrial fibrillation (4) Falls: Qualified Codes: W19.XXXD - Unspecified fall, subsequent encounter (5) Rhabdomyolysis: Sudhir Healy MD R3 Apr 08, 2018 10:43 Dylon Beach MD Apr 08, 2018 15:42
[2018-04-08] MEDS ORDERED: IMIPENEM/CILASTATIN INJ 250 MG VIAL IV SCH (10:45)
[2018-04-08] MEDS: IMIPENEM/CILASTAT 500 MG in NS MINIBAG 100 ML IV SCH ×2 (12:23→17:55)
[2018-04-08] MEDS ORDERED: ASP: Documented ESBL, MDR A baumannii or P. aeruginosa SCH (13:30)
--- NOTE | 2018-04-08 15:51 | RADRPT ---
EXAM DATE: 04/08/2018 3:44 PM EDT AGE/SEX: 87 years / Female INDICATIONS: Abnormal labs. CLINICAL DATA: This is the patient's initial encounter. Patient reports that signs and symptoms have been present for 1 day and indicates a pain score of 0/10. MEDICAL/SURGICAL HISTORY: . Parkinson's disease. Nephro lit iasis. Gait problems. Rhabdomyolysi s. Hysterectomy. Tonsillectomy. Bilateral cataract extraction. COMPARISON: No prior [facility] [place] [facility] exams available for comparison. MEASUREMENTS: Right Kidney:__10.7 x 4.1 x 4.6 cm cm Left Kidney:__11.1 x 3.3 x 5.1 cm cm FINDINGS: Right Kidney: Normal echotexture without cortical thinning. No hydronephrosis or mass is present. The re is an 8 mm echogenic focus in the right upper pole. However, demonstrates no Doppler artifact and no shadowing. Left Kidney: Normal echotexture without cortical thinning. No hydronephrosis, stone, or mass. Bladder: Within normal limits given the degree of distension. CONCLUSION: 1. There is no hydronephrosis or acute abnormality. 2. Echogenic focus in the right upper pole is nonspecific and could represent renal sinus fat versus a renal stone. Electronically signed by: Italo Sanon MD 04/08/2018 3:50 PM EDT
[2018-04-08] MEDS: LATANOPROST 0.005% OPHT SOLN 2.5 ML BTL EACH EYE SCH (21:00)
[2018-04-08] MEDS: ENOXAPARIN SODIUM 40 MG/0.4 ML SYRINGE SQ SCH (21:54)
[2018-04-08] MEDS: VANCOMYCIN INJ 1,250 MG in SODIUM CHLOR 0.9% 250 ML INJ 250 ML IV SCH (22:18)
[2018-04-09] VITALS (10 sets, daily range): BP systolic 140–180; BP diastolic 68–75; PULSE 58–85; RESP 16–18; TEMP 97.8–98.9; O2SAT 90–95
[2018-04-09] MEDS: IMIPENEM/CILASTAT 500 MG in NS MINIBAG 100 ML IV SCH ×5 (00:52→22:36)
[2018-04-09 07:51] LABS: AUTOMATED NEUTROPHIL # 5.4 TH/MM3 (1.8-7.7); BASOPHIL % 0.3 % (0.0-2.0); EOSINOPHIL # 0.1 TH/MM3 (0-0.4); EOSINOPHIL % 1.6 % (0.0-4.0); HEMATOCRIT 30.4 % (35.0-46.0); HEMOGLOBIN 10.6 GM/DL (11.6-15.3); LYMPH % 8.1 % (9.0-44.0); LYMPHOCYTE # 0.6 TH/MM3 (1.0-4.8); MEAN CELL VOLUME 96.5 FL (80.0-100.0); MEAN CORPUSCULAR HEMOGLOBIN 33.7 PG (27.0-34.0); MEAN CORPUSCULAR HGB CONC 34.9 % (32.0-36.0); MEAN PLATELET VOLUME 8.9 FL (7.0-11.0); MONO % 11.1 % (0.0-8.0); MONOCYTE # 0.8 TH/MM3 (0-0.9); NEUT % 78.9 % (16.0-70.0); PLATELET COUNT 123 TH/MM3 (150-450); RED BLOOD COUNT 3.15 MIL/MM3 (4.00-5.30); RED CELL DISTRIBUTION WIDTH 13.7 % (11.6-17.2); WHITE BLOOD COUNT 6.9 TH/MM3 (4.0-11.0)
[2018-04-09 08:15] LABS: BICARBONATE 20.8 MEQ/L (21.0-32.0); CALCIUM 8.1 MG/DL (8.5-10.1); CREATININE 0.64 MG/DL (0.50-1.00)
[2018-04-09] MEDS: RESP: ALBUTEROL 2.5 MG/IPRATROPIUM 0.5 MG NEB (SCH) NEB ×4 (08:52→20:26)
--- NOTE | 2018-04-09 09:42 | HHI.FPPN ---
Subjective Remarks Patient states she is doing "much better" today. She feels like the antibiotic is working. She still has a slight cough but it is improved and nonproductive. She denies fever, chills, chest pain, shortness of breath. She denies nausea , vomiting, diarrhea, constipation. (Sudhir Healy MD R3) Objective Vitals Vital Signs Date Time Temp Pulse Resp B/P (MAP) Pulse Ox O2 Delivery O2 Flow Rate FiO2 04/09/18 08:52 92 Nasal Cannula 3.00 04/09/18 04:06 71 04/09/18 04:00 98.8 65 18 158/70 (99) 94 04/09/18 00:00 98.9 58 18 150/68 (95) 95 04/08/18 23:42 98 Nasal Cannula 3.00 04/08/18 20:23 95 Nasal Cannula 3.00 04/08/18 20:00 72 04/08/18 20:00 99.2 69 18 155/70 (98) 96 04/08/18 18:00 98 Nasal Cannula 4.00 04/08/18 18:00 97 Nasal Cannula 3.00 04/08/18 16:00 98.0 63 16 133/65 (87) 96 04/08/18 12:00 58 04/08/18 12:00 97.5 60 16 144/66 (92) 94 I/O 04/08/18 04/08/18 04/08/18 04/09/18 04/09/18 04/09/18 07:00 15:00 23:00 07:00 15:00 23:00 Intake Total 1600 ml 60 ml 350 ml Balance 1600 ml 60 ml 350 ml Intake Oral 240 ml IV Total 1360 ml 60 ml 350 ml # Voids 3 4 5 # Bowel Movements 1 (Sudhir Healy MD R3) Result Diagram: 04/09/18 0704/09/18 07 Objective Remarks GENERAL: elderly female, lying in bed in no obvious distress SKIN: No rashes, or lesions. Cool and dry. Scattered ecchymoses on legs. EYES: EOM grossly I. NECK: No lymphadenopathy. Supple, nontender. CARDIOVASCULAR: Irregularly irregular; rate <100 with 2/6 systolic murmur. RESPIRATORY: Clear to auscultation. Breath sounds equal bilaterally. No wheezes to auscultation GASTROINTESTINAL: Abdomen soft, non-tender, nondistended. MUSCULOSKELETAL: Extremities without edema. No joint tenderness, effusion, or edema noted. No calf tenderness. NEUROLOGICAL: Awake and alert. (Sudhir Healy MD R3) A/P Assessment and Plan 79-year-old female with history of Parkinson's, depression, recurrent falls presents after a fall and being on the ground for night. Found to have rhabdomyolysis and Afib with RVR Discharge Planning Anticipate discharge to SNF PT recommends PT at rehab. (Sudhir Healy MD R3) Attending Attestation rounds with Dr Healy were performed this am EMR reviewed Patient seen and examined Agree with assessment and plan I approve of the contents of this note I assisted with all medical decision making See Orders (Dylon Beach MD) Problem List: (1) UTI (urinary tract infection) ICD Codes: N39.0 - Urinary tract infection, site not specified Status: Acute Plan: Urine microbiology showing ESBL History of resistant urinary tract infections in the past. Questionable related to renal stone? Infectious disease consulted Ultrasound kidneys-no hydronephrosis or acute abnormality. Echogenic focus in the right upper pole is nonspecific and could represent renal sinus fat versus a renal stone. Started imipenem 500 mg IV every 6 hours Previous antibiotics: -Patient started on Rocephin 1gm daily 04/06-04/07 Given 3 doses of Zosyn on 04/07-04/08 (2) Pneumonia ICD Codes: J18.9 - Pneumonia, unspecified organism Status: Acute Plan: Continue imipenem as above. Also on vancomycin for MRSA coverage Infectious disease consult as above Continue incentive spirometry. Continue oxygen as needed for sats greater than 92. (3) Atrial fibrillation ICD Codes: I48.91 - Unspecified atrial fibrillation Status: Acute Plan: Impression: Patient found to be in atrial fibrillation on EKG and exam, this is new for her. [id number] 3+; frequent falls at home -2D echocardiogram-ejection fraction 45-50%. -Continue Telemetry Continue metoprolol 50 mg p.o. every 12 hours Anticoagulation -Discussion regarding the benefits and risks of anticoagulation were made with patient and her son. Due to recent falls and PT recommendation that patient has current unsafe gait/balance deficits, it was agreed upon that patient would be unsafe for anticoagulation due to risk of serious bleed. -We agreed to continuing patient's home ASA 81mg (4) Falls ICD Codes: W19.XXXA - Unspecified fall, initial encounter Plan: Patient with history of ataxic gait with parkinsonian symptoms. Currently on Sinemet. -OOB with assistance -Physical therapy evaluation-Recommend inpatient physical therapy -OT evaluation- rehabilitation recommended -Continue home Sinemet (5) Parkinsonian features ICD Codes: R25.9 - Parkinsonian features Status: Acute Plan: See plan above for falls Continue home Sinemet Permanent Comment: Affecting gait Last Edited By: Jacob Diaz on Dec 22, 2013 11:26 (6) Hypoxia ICD Codes: R09.02 - Hypoxemia Status: Acute Plan: Impression: O2 saturations to mid 80's when transferring. Coexistent intermittent RVR CXR 04/06 unremarkable. Chest x-ray 04/08 shows bilateral infiltrates as above. -Continue O2 supplementation as needed -incentive spirometry (7) Depressive disorder ICD Codes: F32.9 - Depressive disorder Status: Chronic Plan: Stable Continue home Effexor & Ativan PRN (8) FEN Status: Acute Plan: Fluids: tolerating PO Electrolytes: monitor, replace PRN Nutrition: regular diet DVT ppx: Lovenox 40mg daily (9) Rhabdomyolysis ICD Codes: M62.82 - Rhabdomyolysis Status: Resolved Plan: Found to be in rhabdomyolysis with a creatinine of 2030 on admission. 604 on 04/07 Resolved with fluid hydration (Sudhir Healy MD R3) Problem Qualifiers (1) UTI (urinary tract infection): Qualified Codes: N30.00 - Acute cystitis without hematuria (2) Pneumonia: Qualified Codes: J18.9 - Pneumonia, unspecified organism (3) Atrial fibrillation: Qualified Codes: I48.1 - Persistent atrial fibrillation (4) Falls: Qualified Codes: W19.XXXD - Unspecified fall, subsequent encounter (5) Rhabdomyolysis: Sudhir Healy MD R3 Apr 09, 2018 09:42 Dylon Beach MD Apr 10, 2018 14:01
[2018-04-09] MEDS: CARBIDOPA/LEVODOPA 25 MG/100 MG TAB PO SCH ×3 (09:51→17:46)
[2018-04-09] MEDS: SODIUM CHLORIDE 0.9% FLUSH 10 ML FLUSH IV FLUSH SCH ×2 (09:51→22:35)
[2018-04-09] MEDS: CHOLECALCIFEROL (VIT D3) 1000 UNIT TAB PO SCH (09:51)
[2018-04-09] MEDS: DORZOLAMIDE 2% OPTH SOLN 200 DROP/10 ML BTLO EACH EYE SCH ×2 (09:51→22:31)
[2018-04-09] MEDS: ASPIRIN EC 81 MG TABEC PO SCH (09:51)
[2018-04-09] MEDS: VENLAFAXINE HCL XR 75 MG CAP PO SCH (09:51)
[2018-04-09] MEDS: METOPROLOL TARTRATE 50 MG TAB PO SCH ×2 (09:52→22:35)
[2018-04-09] MEDS: DOCUSATE SODIUM 100 MG CAP PO SCH (09:54)
[2018-04-09] MEDS ORDERED: POTASSIUM CHLORIDE 10 MEQ CONTROLLED RELEASE TAB PO ONE (14:30)
[2018-04-09] MEDS: LATANOPROST 0.005% OPHT SOLN 2.5 ML BTL EACH EYE SCH (21:00)
[2018-04-09] MEDS: VANCOMYCIN INJ 1,250 MG in SODIUM CHLOR 0.9% 250 ML INJ 250 ML IV SCH (22:36)
[2018-04-09] MEDS: ENOXAPARIN SODIUM 40 MG/0.4 ML SYRINGE SQ SCH (22:36)
[2018-04-10] VITALS (10 sets, daily range): BP systolic 145–161; BP diastolic 67–72; PULSE 62–97; RESP 16–18; TEMP 97.2–98.4; O2SAT 90–97
[2018-04-10] MEDS: IMIPENEM/CILASTAT 500 MG in NS MINIBAG 100 ML IV SCH ×2 (05:53→12:23)
[2018-04-10 07:12] LABS: BASOPHIL % 0.4 % (0.0-2.0); EOSINOPHIL # 0.2 TH/MM3 (0-0.4); HEMOGLOBIN 10.3 GM/DL (11.6-15.3); LYMPH % 9.5 % (9.0-44.0); LYMPHOCYTE # 0.6 TH/MM3 (1.0-4.8); MEAN CELL VOLUME 97.9 FL (80.0-100.0); MEAN CORPUSCULAR HEMOGLOBIN 33.7 PG (27.0-34.0); MEAN CORPUSCULAR HGB CONC 34.4 % (32.0-36.0); MEAN PLATELET VOLUME 8.9 FL (7.0-11.0); MONO % 10.2 % (0.0-8.0); MONOCYTE # 0.7 TH/MM3 (0-0.9); NEUT % 76.9 % (16.0-70.0); PLATELET COUNT 142 TH/MM3 (150-450); RED BLOOD COUNT 3.07 MIL/MM3 (4.00-5.30); RED CELL DISTRIBUTION WIDTH 13.3 % (11.6-17.2); WHITE BLOOD COUNT 6.5 TH/MM3 (4.0-11.0)
[2018-04-10 07:42] LABS: BICARBONATE 26.3 MEQ/L (21.0-32.0); CALCIUM 7.8 MG/DL (8.5-10.1); CREATININE 0.56 MG/DL (0.50-1.00)
--- NOTE | 2018-04-10 08:09 | HHI.FPPN ---
Subjective Remarks Patient states she is doing better this morning. Her coughing has improved and is very mild and nonproductive. She denies chest pain, shortness of breath. She denies flank pain, fever, chills, nausea, vomiting, diarrhea, constipation. (Sudhir Healy MD R3) Objective Vitals Vital Signs Date Time Temp Pulse Resp B/P (MAP) Pulse Ox O2 Delivery O2 Flow Rate FiO2 04/10/18 07:17 Nasal Cannula 3.00 04/10/18 04:00 97.2 71 18 161/70 (100) 92 04/10/18 00:00 98.2 97 18 145/68 (93) 90 04/09/18 22:30 92 Nasal Cannula 3.00 04/09/18 22:30 64 04/09/18 20:28 92 Nasal Cannula 04/09/18 20:00 98.0 79 18 159/68 (98) 90 04/09/18 16:00 68 04/09/18 16:00 97.8 70 16 140/68 (92) 94 04/09/18 12:00 98.8 62 16 159/70 (99) 94 04/09/18 10:12 Nasal Cannula 3.00 04/09/18 08:52 92 Nasal Cannula 3.00 I/O 04/09/18 04/09/18 04/09/18 04/10/18 04/10/18 04/10/18 07:00 15:00 23:00 07:00 15:00 23:00 Intake Total 350 ml Balance 350 ml IV Total 350 ml # Voids 5 2 3 # Bowel Movements 1 1 (Sudhir Healy MD R3) Result Diagram: 04/10/18 0610 04/10/18 0610 Objective Remarks GENERAL: elderly female, lying in bed in no obvious distress SKIN: No rashes, or lesions. Cool and dry. Scattered ecchymoses on legs. EYES: EOM grossly I. NECK: No lymphadenopathy. Supple, nontender. CARDIOVASCULAR: Regular rate with 2/6 systolic murmur. RESPIRATORY: Clear to auscultation. Breath sounds equal bilaterally. No wheezes to auscultation GASTROINTESTINAL: Abdomen soft, non-tender, nondistended. Genitourinary: No CVA tenderness. MUSCULOSKELETAL: Extremities without edema. No joint tenderness, effusion, or edema noted. No calf tenderness. NEUROLOGICAL: Awake and alert. (Sudhir Healy MD R3) A/P Assessment and Plan 87-year-old female with history of Parkinson's, depression, recurrent falls presents after a fall and being on the ground for night. Found to have rhabdomyolysis and Afib with RVR. Rhabdo and atrial fibrillation with RVR now resolved. Currently being treated for ESBL UTI. Discharge Planning Anticipate discharge to SNF PT recommends PT at rehab. (Sudhir Healy MD R3) Attending Attestation Rounds with Dr Healy were performed thismorning EMR reviewed Patient seen and examined Agree with assessment and plan I approve of the contents of this note I assisted with all medical decision making See Orders (Dylon Beach MD) Problem List: (1) UTI (urinary tract infection) ICD Codes: N39.0 - Urinary tract infection, site not specified Status: Acute Plan: Clinically improving. 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 Questionable related to renal stone? Infectious disease consulted Ultrasound kidneys-no hydronephrosis or acute abnormality. Echogenic focus in the right upper pole is nonspecific and could represent renal sinus fat versus a renal stone. Started imipenem 500 mg IV every 6 hours Previous antibiotics: -Patient started on Rocephin 1gm daily 04/06-04/07 Given 3 doses of Zosyn on 04/07-04/08 (2) Pneumonia ICD Codes: J18.9 - Pneumonia, unspecified organism Status: Acute Plan: Repeat chest x-ray ordered on 04/10 Continue imipenem as above. Also on vancomycin for MRSA coverage Infectious disease consult as above Continue incentive spirometry. Continue oxygen as needed for sats greater than 92. (3) Atrial fibrillation ICD Codes: I48.91 - Unspecified atrial fibrillation Status: Acute Plan: Impression: Patient found to be in atrial fibrillation on EKG and exam, this is new for her. [id number] 3+; frequent falls at home -2D echocardiogram-ejection fraction 45-50%. -Continue Telemetry Continue metoprolol 50 mg p.o. every 12 hours Anticoagulation -Discussion regarding the benefits and risks of anticoagulation were made with patient and her son. Due to recent falls and PT recommendation that patient has current unsafe gait/balance deficits, it was agreed upon that patient would be unsafe for anticoagulation due to risk of serious bleed. -We agreed to continuing patient's home ASA 81mg (4) Falls ICD Codes: W19.XXXA - Unspecified fall, initial encounter Plan: Patient with history of ataxic gait with parkinsonian symptoms. Currently on Sinemet. -OOB with assistance -Physical therapy evaluation-Recommend inpatient physical therapy -OT evaluation- rehabilitation recommended -Continue home Sinemet (5) Parkinsonian features ICD Codes: R25.9 - Parkinsonian features Status: Acute Plan: See plan above for falls Continue home Sinemet Permanent Comment: Affecting gait Last Edited By: Jacob Diaz on Dec 22, 2013 11:26 (6) Hypoxia ICD Codes: R09.02 - Hypoxemia Status: Acute Plan: Impression: O2 saturations to mid 80's when transferring. Coexistent intermittent RVR CXR 04/06 unremarkable. Chest x-ray 04/08 shows bilateral infiltrates as above. Chest x-ray ordered on 04/10 -Continue O2 supplementation as needed for sats less than 92 -incentive spirometry (7) Depressive disorder ICD Codes: F32.9 - Depressive disorder Status: Chronic Plan: Stable Continue home Effexor & Ativan PRN (8) FEN Status: Acute Plan: Fluids: tolerating PO Electrolytes: monitor, replace PRN Nutrition: regular diet DVT ppx: Lovenox 40mg daily (9) Rhabdomyolysis ICD Codes: M62.82 - Rhabdomyolysis Status: Resolved Plan: Found to be in rhabdomyolysis with a creatinine of 2030 on admission. 604 on 04/07 Resolved with fluid hydration (Sudhir Healy MD R3) Problem Qualifiers (1) UTI (urinary tract infection): Qualified Codes: N30.00 - Acute cystitis without hematuria (2) Pneumonia: Qualified Codes: J18.9 - Pneumonia, unspecified organism (3) Atrial fibrillation: Qualified Codes: I48.1 - Persistent atrial fibrillation (4) Falls: Qualified Codes: W19.XXXD - Unspecified fall, subsequent encounter (5) Rhabdomyolysis: Sudhir Healy MD R3 Apr 10, 2018 08:09 Dylon Beach MD Apr 10, 2018 14:03
[2018-04-10] MEDS: RESP: ALBUTEROL 2.5 MG/IPRATROPIUM 0.5 MG NEB (SCH) NEB ×4 (08:10→19:49)
[2018-04-10] MEDS ORDERED: POTASSIUM CHLORIDE 10 MEQ CONTROLLED RELEASE TAB PO ONE (08:15)
[2018-04-10] MEDS: VENLAFAXINE HCL XR 75 MG CAP PO SCH (09:31)
[2018-04-10] MEDS: CARBIDOPA/LEVODOPA 25 MG/100 MG TAB PO SCH ×3 (09:31→17:23)
[2018-04-10] MEDS: CHOLECALCIFEROL (VIT D3) 1000 UNIT TAB PO SCH (09:31)
[2018-04-10] MEDS: DOCUSATE SODIUM 100 MG CAP PO SCH (09:31)
[2018-04-10] MEDS: SODIUM CHLORIDE 0.9% FLUSH 10 ML FLUSH IV FLUSH SCH ×2 (09:32→22:12)
[2018-04-10] MEDS: ASPIRIN EC 81 MG TABEC PO SCH (09:32)
[2018-04-10] MEDS: METOPROLOL TARTRATE 50 MG TAB PO SCH ×2 (09:32→22:13)
[2018-04-10] MEDS: DORZOLAMIDE 2% OPTH SOLN 200 DROP/10 ML BTLO EACH EYE SCH ×2 (09:32→22:12)
--- NOTE | 2018-04-10 10:33 | RADRPT ---
EXAM DATE: 04/10/2018 10:27 AM EDT AGE/SEX: 87 years / Female INDICATIONS: Short of breath. CLINICAL DATA: This is the patient's subsequent encounter. Patient reports that signs and symptoms h ave been present for 4 - 6 days and indicates a pain score of 0/10. MEDICAL/SURGICAL HISTORY: . Parkinson's disease Hysterectomy. COMPARISON: [facility] [place], 04/07/[place]. . FINDINGS: Hazy bilateral primarily perihilar and basilar pleural-parenchymal opacities are again noted with inc reasing volume of pleural fluid bilaterally. Apical pleural-parenchymal scarring is again noted. Card iac contours are largely obscured on today's film. CONCLUSION: Worsening chest appearance with increasing bilateral effusions and diffuse parenchymal probable edema Electronically signed by: Italo Thomas MD 04/10/2018 10:31 AM EDT
--- NOTE | 2018-04-10 15:22 | PD.ID.CON ---
History of Present Illness Service ID Consult Requested By Dr Healy Reason for Consult ESBL + UTI Primary Care Physician Jacob Diaz MD Diagnoses: History of Present Illness 87 yo female with Parkinsons disease, kidney stones and frequent UTIs found down by her son On presentation Leukocytosis of 13.9 K, mild rhabdomyolisis and UTI : UA with pyuria, bactriuria, urine culture with ESBL + E.coli Start on Prmiaxin, vanco She improved clincially she is afebrile WBC normal Review of Systems ROS Limitations: Poor Historian Past Family Social History Allergies: Coded Allergies: No Known Allergies (Unverified , 04/06/18) Past Medical History Parkinson's/Gait abnormality Re-current UTIs Depression Renal calculi with obstruction of right ureter and hospitalization for UTI 2014. 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67 Tobacco: none Alcohol: occasionally Illicit drug use: none Physical Exam Vital Signs Vital Signs Date Time Temp Pulse Resp B/P (MAP) Pulse Ox O2 Delivery O2 Flow Rate FiO2 04/10/18 11:00 98.1 62 16 145/69 (94) 94 04/10/18 10:58 66 04/10/18 08:12 95 Nasal Cannula 3.00 04/10/18 08:00 97.2 69 17 154/72 (99) 93 04/10/18 07:17 Nasal Cannula 3.00 04/10/18 04:00 97.2 71 18 161/70 (100) 92 04/10/18 00:00 98.2 97 18 145/68 (93) 90 04/09/18 22:30 92 Nasal Cannula 3.00 04/09/18 22:30 64 04/09/18 20:28 92 Nasal Cannula 04/09/18 20:00 98.0 79 18 159/68 (98) 90 04/09/18 16:00 68 04/09/18 16:00 97.8 70 16 140/68 (92 94 Physical Exam CONSTITUTIONAL/GENERAL: This is an adequately nourished elderly frail patient, in no apparent distress. TUBES/LINES/DRAINS: SKIN: No jaundice, rashes, or lesions. Ecchymoses on b/l upper and lower extremities. . Skin temperature appropriate. Not diaphoretic. HEAD: Atraumatic. Normocephalic. EYES: Pupils equal and round and reactive. Extraocular motions intact. No scleral icterus. No injection or drainage. Fundi not examined. ENT: Hearing grossly normal. Nose without bleeding or purulent drainage. Throat without visible erythema, exudates, masses, or lesions. NECK: Trachea midline. Supple, nontender. No palpable thyroid enlargement or nodularity. CARDIOVASCULAR: Regular rate and rhythm without murmurs, gallops, or rubs. No JVD. Peripheral pulses symmetric. RESPIRATORY/CHEST: Symmetric, unlabored respirations. Clear to auscultation. Breath sounds equal bilaterally. No wheezes, rales, or rhonchi. GASTROINTESTINAL: Abdomen soft, non-tender, nondistended. No hepato-splenomegaly , or palpable masses. No guarding. Bowel sounds present. GENITOURINARY: Without palpable bladder distension. No CVA tenderness b/l MUSCULOSKELETAL: Extremities without clubbing, cyanosis, or edema. No joint tenderness or effusion noted. No calf tenderness. No mottling or clubbing. LYMPHATICS: No palpable cervical or supraclavicular adenopathy. NEUROLOGICAL: Awake and alert. Motor and sensory grossly within normal limits. Follows commands. Clear speech. Moves all extremities. PSYCHIATRIC: No obvious anxiety/depression. no apparent hallucinations or other psychotic thought process. Flat affect Laboratory Laboratory Tests Test 04/10/18 06:10 White Blood Count 6.5 Red Blood Count 3.07 Hemoglobin 10.3 Hematocrit 30.0 Mean Corpuscular Volume 97.9 Mean Corpuscular Hemoglobin 33.7 Mean Corpuscular Hemoglobin Concent 34.4 Red Cell Distribution Width 13.3 Platelet Count 142 Mean Platelet Volume 8.9 Neutrophils (%) (Auto) 76.9 Lymphocytes (%) (Auto) 9.5 Monocytes (%) (Auto) 10.2 Eosinophils (%) (Auto) 3.0 Basophils (%) (Auto) 0.4 Neutrophils # (Auto) 5.0 Lymphocytes # (Auto) 0.6 Monocytes # (Auto) 0.7 Eosinophils # (Auto) 0.2 Basophils # (Auto) 0.0 CBC Comment DIFF FINAL Differential Comment Blood Urea Nitrogen 10 Creatinine 0.56 Random Glucose 84 Calcium Level 7.8 Sodium Level 143 Potassium Level 3.4 Chloride Level 109 Carbon Dioxide Level 26.3 Anion Gap 8 Estimat Glomerular Filtration Rate 102 Date/Time Source Procedure Growth Status 04/06/18 06:50 Urine Clean Catch Urine Culture - Final Escherichia Coli Esbl Positive Complete Result Diagram: 04/10/18 0610 04/10/18 0610 Imaging Last Impressions Chest X-Ray 04/10/18 0000 Signed Impressions: CONCLUSION: Worsening chest appearance with increasing bilateral effusions and diffuse pare nchymal probable edema Renal Ultrasound 04/08/18 0000 Signed Impressions: CONCLUSION: 1. There is no hydronephrosis or acute abnormality. 2. Echogenic focus in the right upper pole is nonspecific and could represent renal sinus fat versus a renal stone. Shoulder X-Ray 04/05/18 1824 Signed Impressions: CONCLUSION: 1. No acute fracture or dislocation. 2. Mild degenerative changes involving the right acromioclavicular joint. Assessment and Plan Assessment and Plan ESBL + E.coli UTI Mult med problems change abx to Ertapenem complete 14 days total fu with urologist as o/p for kidney stoned midline OPAT filled out OK to dc from ID standpoint Discussed Condition With son Alma Romero MD Apr 10, 2018 15:22
--- NOTE | 2018-04-10 15:24 | HHI.FF ---
Infusion Therapy Location of Infusion Therapy: Home [facility] Care IV Infusion Order Patient Information Patient Weight 59 kg Diagnosis: Coded Allergies: No Known Allergies (Unverified , 04/06/18) Administer Medication Ertapenem 1 gram IV q 24 hours Start Treatment: Apr 11, 2018 Stop Treatment: Apr 20, 2018 Additional Information Venous access: PICC Line, Other Additional Instructions [x] Peripheral flush and dressing changes per protocol [x] Implanted port and central line worker: * Implanted port: 10 ml Normal Saline followed by 5 ml Heparin 100 units/ml Heparin flush after each use and monthly to maintain. [] May leave port accessed during therapy. [] May leave peripheral site accessed for duration of therapy. [x] If patient has SOB or respiratory distress, check oxygen saturation. If less than 90% or clinical signs of respiratory distress, administer oxygen at 2 L/min. via nasal cannula and notify physician. [x] Anaphylaxis/Reaction orders: * Stop infusion. * Keep IV line open with saline flush. * Notify physician. * Monitor vital signs every 15 minutes until symptoms resolve. * Check Oxygen saturation; Oxygen at 2 L/min. via nasal cannula if less than 90% or clinical signs of respiratory distress. * Administer diphenhydramine (Benadryl) 25 mg IV STAT, (unless patient has received as pre-med). May repeat once, if necessary. * Solu-Cortef 250 mg IVP over 30-60 seconds, use 100 mg vials for each dissolution. * Epinephrine (1mg/1 ml) 0.3 mg subcutaneously or IVP now with any signs of respiratory distress. * Check with physician for new additional pre-med orders if patient is re- challenged or re-treated. [x] May remove PICC line when treatment complete, after confirming with Physician. [x] If the patient is admitted to the hospital, the ED, or transferred via [facility] , complete transfer form including medication reconciliation order sheet. Laboratory Tests Weekly Labs: CBC w/diff, Creatinine Alma Romero MD Apr 10, 2018 15:24
[2018-04-10] MEDS ORDERED: EPIN1INJ21 IV PUSH (15:27)
[2018-04-10] MEDS ORDERED: EPIN1INJ21 SQ (15:27)
[2018-04-10] MEDS ORDERED: INVA1INJ IV (15:27)
[2018-04-10] MEDS ORDERED: SOLU250I IV PUSH (15:27)
[2018-04-10] MEDS ORDERED: PHARMACY INFORMATION XX PRN (15:30)
[2018-04-10] MEDS ORDERED: ASP: Documented ESBL, MDR A baumannii or P. aeruginosa PRN (15:30)
[2018-04-10] MEDS: ERTAPENEM INJ 1,000 MG in SODIUM CHLORIDE 0.9% INJ 100 ML IV SCH (17:23)
[2018-04-10] MEDS: LATANOPROST 0.005% OPHT SOLN 2.5 ML BTL EACH EYE SCH (22:12)
[2018-04-10] MEDS: ENOXAPARIN SODIUM 40 MG/0.4 ML SYRINGE SQ SCH (22:13)
[2018-04-10] MEDS ORDERED: PHARMACY ORDERED LAB ONE (22:45)
[2018-04-11] VITALS (9 sets, daily range): BP systolic 146–157; BP diastolic 64–74; PULSE 61–78; RESP 16–18; TEMP 97.4–98.2; O2SAT 91–98
[2018-04-11 07:29] LABS: BICARBONATE 26.4 MEQ/L (21.0-32.0); CALCIUM 8.3 MG/DL (8.5-10.1); CREATININE 0.63 MG/DL (0.50-1.00); MAGNESIUM 1.8 MG/DL (1.5-2.5)
[2018-04-11] MEDS: RESP: ALBUTEROL 2.5 MG/IPRATROPIUM 0.5 MG NEB (SCH) NEB ×4 (08:55→19:50)
[2018-04-11] MEDS ORDERED: FUROSEMIDE 40 MG/4 ML VIAL IV PUSH ONE (09:15)
[2018-04-11] MEDS ORDERED: POTASSIUM CHLORIDE 10 MEQ CONTROLLED RELEASE TAB PO ONE (09:15)
--- NOTE | 2018-04-11 09:20 | HHI.FPPN ---
Subjective Remarks Patient states she is doing well this morning. Still requiring oxygen. She states her cough is minimal. She denies chest pain. She is walking around the room with the help of her son and a walker. She denies fever, chills. Objective Vitals Vital Signs Date Time Temp Pulse Resp B/P (MAP) Pulse Ox O2 Delivery O2 Flow Rate FiO2 04/11/18 08:58 93 Nasal Cannula 3.00 04/11/18 04:00 98.0 69 18 157/72 (100) 97 04/11/18 00:00 98.2 78 18 153/74 (100) 98 04/10/18 21:00 78 04/10/18 21:00 98 Nasal Cannula 3.00 04/10/18 20:00 98.0 80 16 155/72 (99) 97 04/10/18 16:52 94 Nasal Cannula 3.00 04/10/18 15:50 98.4 69 18 153/67 (95) 94 04/10/18 11:00 98.1 62 16 145/69 (94) 94 04/10/18 10:58 66 I/O 04/10/18 04/10/18 04/10/18 04/11/18 04/11/18 04/11/18 06:59 14:59 22:59 06:59 14:59 22:59 # Voids 3 Result Diagram: 04/10/18 0610 04/11/18 0630 Objective Remarks GENERAL: elderly female, lying in bed in no obvious distress SKIN: No rashes, or lesions. Cool and dry. Scattered ecchymoses on legs. EYES: EOM grossly I. NECK: No lymphadenopathy. Supple, nontender. CARDIOVASCULAR: Regular rate with 2/6 systolic murmur. RESPIRATORY: Mild congestion at the bases bilaterally. Breath sounds equal bilaterally. No wheezes to auscultation GASTROINTESTINAL: Abdomen soft, non-tender, nondistended. Genitourinary: No CVA tenderness. MUSCULOSKELETAL: Extremities without edema. No joint tenderness, effusion, or edema noted. No calf tenderness. NEUROLOGICAL: Awake and alert. A/P Assessment and Plan 87-year-old female with history of Parkinson's, depression, recurrent falls presents after a fall and being on the ground for night. Found to have rhabdomyolysis and Afib with RVR. Rhabdo and atrial fibrillation with RVR now resolved. Currently being treated for ESBL UTI. Discharge Planning Anticipate discharge to SNF PT recommends PT at rehab. Problem List: (1) UTI (urinary tract infection) ICD Codes: N39.0 - Urinary tract infection, site not specified Status: Acute Plan: Clinically improving. 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 Questionable related to renal stone? Infectious disease consulted Ertapenem 1000 mg IV every 24 started on 04/10 (patient to complete 14 total days- medication filled out in the discharge section per infectious disease) Patient is to follow-up with urologist as an outpatient for possible kidney stone Previous antibiotics: -Patient started on Rocephin 1gm daily 04/06-04/07 Given 3 doses of Zosyn on 04/07-04/08 Started imipenem 500 mg IV every 6 hours Imaging: Ultrasound kidneys-no hydronephrosis or acute abnormality. Echogenic focus in the right upper pole is nonspecific and could represent renal sinus fat versus a renal stone. (2) Pleural effusion ICD Codes: J90 - Pleural effusion, not elsewhere classified Status: Acute Plan: Clinically improving However worsening bilateral pleural effusions on chest x-ray, which is likely related to aggressive IV hydration for rhabdomyolysis Lasix 40 mg IV 1 Wean oxygen as tolerated, patient may need oxygen walk test tomorrow to determine need for oxygen when discharge. (3) Atrial fibrillation ICD Codes: I48.91 - Unspecified atrial fibrillation Status: Acute Plan: Impression: Patient found to be in atrial fibrillation on EKG and exam, this is new for her. [id number] 3+; frequent falls at home -2D echocardiogram-ejection fraction 45-50%. -Continue Telemetry Continue metoprolol 50 mg p.o. every 12 hours Anticoagulation -Discussion regarding the benefits and risks of anticoagulation were made with patient and her son. Due to recent falls and PT recommendation that patient has current unsafe gait/balance deficits, it was agreed upon that patient would be unsafe for anticoagulation due to risk of serious bleed. -We agreed to continuing patient's home ASA 81mg (4) Falls ICD Codes: W19.XXXA - Unspecified fall, initial encounter Plan: Patient with history of ataxic gait with parkinsonian symptoms. Currently on Sinemet. -OOB with assistance -Physical therapy evaluation-Recommend inpatient physical therapy -OT evaluation- rehabilitation recommended -Continue home Sinemet (5) Parkinsonian features ICD Codes: R25.9 - Parkinsonian features Status: Acute Plan: See plan above for falls Continue home Sinemet Permanent Comment: Affecting gait Last Edited By: Jacob Diaz on Dec 22, 2013 11:26 (6) Hypoxia ICD Codes: R09.02 - Hypoxemia Status: Acute Plan: Impression: O2 saturations to mid 80's when transferring. Coexistent intermittent RVR CXR 04/06 unremarkable. Chest x-ray 04/08 shows bilateral infiltrates as above. Chest x-ray on 04/10-bilateral pleural effusions, consistent with fluid overload. See above -Continue O2 supplementation as needed for sats less than 92 -incentive spirometry (7) Depressive disorder ICD Codes: F32.9 - Depressive disorder Status: Chronic Plan: Stable Continue home Effexor & Ativan PRN (8) FEN Status: Acute Plan: Fluids: tolerating PO Electrolytes: monitor, replace PRN Nutrition: regular diet DVT ppx: Lovenox 40mg daily (9) Rhabdomyolysis ICD Codes: M62.82 - Rhabdomyolysis Status: Resolved Plan: Found to be in rhabdomyolysis with a creatinine of 2030 on admission. 604 on 04/07 Resolved with fluid hydration Problem Qualifiers (1) UTI (urinary tract infection): Qualified Codes: N30.00 - Acute cystitis without hematuria (2) Atrial fibrillation: Qualified Codes: I48.1 - Persistent atrial fibrillation (3) Falls: Qualified Codes: W19.XXXD - Unspecified fall, subsequent encounter (4) Rhabdomyolysis: Sudhir Healy MD R3 Apr 11, 2018 09:20
[2018-04-11] MEDS: DOCUSATE SODIUM 100 MG CAP PO SCH (09:40)
[2018-04-11] MEDS: METOPROLOL TARTRATE 50 MG TAB PO SCH ×2 (09:40→22:18)
[2018-04-11] MEDS: VENLAFAXINE HCL XR 75 MG CAP PO SCH (09:40)
[2018-04-11] MEDS: SODIUM CHLORIDE 0.9% FLUSH 10 ML FLUSH IV FLUSH SCH ×2 (09:40→22:19)
[2018-04-11] MEDS: CARBIDOPA/LEVODOPA 25 MG/100 MG TAB PO SCH ×3 (09:40→17:24)
[2018-04-11] MEDS: DORZOLAMIDE 2% OPTH SOLN 200 DROP/10 ML BTLO EACH EYE SCH ×2 (09:40→22:19)
[2018-04-11] MEDS: CHOLECALCIFEROL (VIT D3) 1000 UNIT TAB PO SCH (09:40)
[2018-04-11] MEDS: ASPIRIN EC 81 MG TABEC PO SCH (09:40)
[2018-04-11] MEDS: ERTAPENEM INJ 1,000 MG in SODIUM CHLORIDE 0.9% INJ 100 ML IV SCH (16:10)
[2018-04-11] MEDS: ENOXAPARIN SODIUM 40 MG/0.4 ML SYRINGE SQ SCH (22:18)
[2018-04-11] MEDS: LATANOPROST 0.005% OPHT SOLN 2.5 ML BTL EACH EYE SCH (22:19)
[2018-04-12] VITALS (8 sets, daily range): BP systolic 135–159; BP diastolic 63–69; PULSE 54–70; RESP 18–20; TEMP 97.4–98.4; O2SAT 91–98
[2018-04-12] MEDS: ASPIRIN EC 81 MG TABEC PO SCH (07:57)
[2018-04-12] MEDS: CARBIDOPA/LEVODOPA 25 MG/100 MG TAB PO SCH ×3 (07:57→17:25)
[2018-04-12] MEDS: CHOLECALCIFEROL (VIT D3) 1000 UNIT TAB PO SCH (07:57)
[2018-04-12] MEDS: METOPROLOL TARTRATE 50 MG TAB PO SCH ×2 (07:57→20:18)
[2018-04-12] MEDS: DOCUSATE SODIUM 100 MG CAP PO SCH (07:57)
[2018-04-12] MEDS: VENLAFAXINE HCL XR 75 MG CAP PO SCH (07:57)
[2018-04-12] MEDS: SODIUM CHLORIDE 0.9% FLUSH 10 ML FLUSH IV FLUSH SCH ×2 (07:58→20:19)
[2018-04-12] MEDS: DORZOLAMIDE 2% OPTH SOLN 200 DROP/10 ML BTLO EACH EYE SCH ×2 (07:58→20:18)
[2018-04-12 08:42] LABS: BICARBONATE 25.2 MEQ/L (21.0-32.0); CALCIUM 8.1 MG/DL (8.5-10.1)
[2018-04-12 08:44] LABS: CREATININE 0.58 MG/DL (0.50-1.00)
[2018-04-12] MEDS ORDERED: POTASSIUM CHLORIDE 20 MEQ CONTROLLED RELEASE TAB PO ONE (09:30)
[2018-04-12] MEDS ORDERED: FUROSEMIDE 40 MG TAB PO ONE (09:30)
[2018-04-12] MEDS ORDERED: OXYGENDME NAS.CANULA (09:58)
--- NOTE | 2018-04-12 10:02 | HHI.FPPN ---
Subjective Remarks Interviewed with son at bedside. No acute issues currently. Did fail O2 walk test, so patient will need to be on O2 at SNF. Denies cp, n/v/d, sob. Son did walk her around the halls yesterday, and she did relatively well. No fevers, chills. Objective Vitals Vital Signs Date Time Temp Pulse Resp B/P (MAP) Pulse Ox O2 Delivery O2 Flow Rate FiO2 04/12/18 08:53 98.2 58 18 159/69 (99) 97 04/12/18 08:45 2.00 04/12/18 07:38 Nasal Cannula 3.00 04/12/18 04:00 98.1 66 20 137/63 (87) 91 04/12/18 00:00 57 04/12/18 00:00 97.5 70 18 150/66 (94) 93 04/11/18 20:04 Nasal Cannula 3.00 04/11/18 20:00 Nasal Cannula 3.00 04/11/18 20:00 76 04/11/18 19:40 97.9 78 18 148/65 (92) 95 04/11/18 17:00 98.2 74 17 155/71 (99) 91 04/11/18 16:16 96 21 04/11/18 12:00 97.4 63 16 146/64 (91) 96 04/11/18 10:38 61 04/11/18 10:04 Nasal Cannula 3.00 I/O 04/11/18 04/11/18 04/11/18 04/12/18 04/12/18 04/12/18 07:00 15:00 23:00 07:00 15:00 23:00 Intake Total 360 ml Balance 360 ml Intake Oral 360 ml # Voids 3 0 # Bowel Movements 2 0 1 Result Diagram: 04/10/18 0610 04/12/18 0640 Objective Remarks GENERAL: elderly female, lying in bed in no obvious distress SKIN: No rashes, or lesions. Cool and dry. Scattered ecchymoses on legs. EYES: EOM grossly I. NECK: No lymphadenopathy. Supple, nontender. CARDIOVASCULAR: Regular rate with 2/6 systolic murmur. RESPIRATORY: Mild congestion at the bases bilaterally. Breath sounds equal bilaterally. No wheezes to auscultation GASTROINTESTINAL: Abdomen soft, non-tender, nondistended. Genitourinary: No CVA tenderness. MUSCULOSKELETAL: Extremities without edema. No joint tenderness, effusion, or edema noted. No calf tenderness. NEUROLOGICAL: Awake and alert. A/P Assessment and Plan 87-year-old female with history of Parkinson's, depression, recurrent falls presents after a fall and being on the ground for night. Found to have rhabdomyolysis and Afib with RVR. Rhabdo and atrial fibrillation with RVR now resolved. Currently being treated for ESBL UTI. Discharge Planning Anticipate discharge to SNF on Friday- will be going to [facility] ([id number] signed) She will need to continue to take ertapenem per ID and follow up with urology for possible stone. PT recommends PT at rehab. Problem List: (1) UTI (urinary tract infection) ICD Codes: N39.0 - Urinary tract infection, site not specified Status: Acute Plan: Clinically improving. 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 Questionable related to renal stone? Infectious disease consulted Ertapenem 1000 mg IV every 24 started on 04/10 (patient to complete 14 total days- medication filled out in the discharge section per infectious disease) Patient is to follow-up with urologist as an outpatient for possible kidney stone Previous antibiotics: -Patient started on Rocephin 1gm daily 04/06-04/07 Given 3 doses of Zosyn on 04/07-04/08 Started imipenem 500 mg IV every 6 hours Imaging: Ultrasound kidneys-no hydronephrosis or acute abnormality. Echogenic focus in the right upper pole is nonspecific and could represent renal sinus fat versus a renal stone. (2) Pleural effusion ICD Codes: J90 - Pleural effusion, not elsewhere classified Status: Acute Plan: Clinically improving However worsening bilateral pleural effusions on chest x-ray on 04/10, which is likely related to aggressive IV hydration for rhabdomyolysis Lasix 40 mg IV 1 on 04/11 Giving lasix 40 mg PO on 04/12- and repeating chest xray on 04/13. she has been requiring K+ repletion with lasix administration Oxygen walk test on 04/12 failed- will need oxygen at SNF (3) Atrial fibrillation ICD Codes: I48.91 - Unspecified atrial fibrillation Status: Acute Plan: Impression: Patient found to be in atrial fibrillation on EKG and exam, this is new for her. [id number] 3+; frequent falls at home -2D echocardiogram-ejection fraction 45-50%. -Continue Telemetry Continue metoprolol 50 mg p.o. every 12 hours Anticoagulation -Discussion regarding the benefits and risks of anticoagulation were made with patient and her son. Due to recent falls and PT recommendation that patient has current unsafe gait/balance deficits, it was agreed upon that patient would be unsafe for anticoagulation due to risk of serious bleed. -We agreed to continuing patient's home ASA 81mg (4) Falls ICD Codes: W19.XXXA - Unspecified fall, initial encounter Plan: Patient with history of ataxic gait with parkinsonian symptoms. Currently on Sinemet. -OOB with assistance -Physical therapy evaluation-Recommend inpatient physical therapy -OT evaluation- rehabilitation recommended -Continue home Sinemet (5) Parkinsonian features ICD Codes: R25.9 - Parkinsonian features Status: Acute Plan: See plan above for falls Continue home Sinemet Permanent Comment: Affecting gait Last Edited By: Jacob Diaz on Dec 22, 2013 11:26 (6) Hypoxia ICD Codes: R09.02 - Hypoxemia Status: Acute Plan: Impression: O2 saturations to mid 80's when transferring. Coexistent intermittent RVR CXR 04/06 unremarkable. Chest x-ray 04/08 shows bilateral infiltrates as above. Chest x-ray on 04/10-bilateral pleural effusions, consistent with fluid overload. See above chest xray ordered for 04/13 -Continue O2 supplementation as needed for sats less than 92 -incentive spirometry (7) Depressive disorder ICD Codes: F32.9 - Depressive disorder Status: Chronic Plan: Stable Continue home Effexor & Ativan PRN (8) FEN Status: Acute Plan: Fluids: tolerating PO Electrolytes: monitor, replace PRN Nutrition: regular diet DVT ppx: Lovenox 40mg daily (9) Rhabdomyolysis ICD Codes: M62.82 - Rhabdomyolysis Status: Resolved Plan: Found to be in rhabdomyolysis with a creatinine of 2030 on admission. 604 on 04/07 Resolved with fluid hydration Problem Qualifiers (1) UTI (urinary tract infection): Qualified Codes: N30.00 - Acute cystitis without hematuria (2) Atrial fibrillation: Qualified Codes: I48.1 - Persistent atrial fibrillation (3) Falls: Qualified Codes: W19.XXXD - Unspecified fall, subsequent encounter (4) Rhabdomyolysis: Sudhir Healy MD R3 Apr 12, 2018 10:02
[2018-04-12] MEDS: ERTAPENEM INJ 1,000 MG in SODIUM CHLORIDE 0.9% INJ 100 ML IV SCH (16:01)
[2018-04-12] MEDS: LATANOPROST 0.005% OPHT SOLN 2.5 ML BTL EACH EYE SCH (20:19)
[2018-04-12] MEDS: ENOXAPARIN SODIUM 40 MG/0.4 ML SYRINGE SQ SCH (22:04)
[2018-04-13] VITALS (8 sets, daily range): BP systolic 123–154; BP diastolic 65–70; PULSE 52–63; RESP 20–22; TEMP 97.6–98.4; O2SAT 95–98
--- NOTE | 2018-04-13 07:56 | HHI.FPPN ---
Subjective Remarks Pt seen and examined this morning. No acute events overnight. Pts son present at bedside. Pt denies chest pain, shortness of breath, abdominal pain. No issues voiding or stooling. She reports doing well overall and denies any additional acute concerns. Pt anticipates discharge later today to [facility], this was discussed with pts son who is in agreement with the current plan. (Megha Obando MD R3) Objective Vitals Vital Signs Date Time Temp Pulse Resp B/P (MAP) Pulse Ox O2 Delivery O2 Flow Rate FiO2 04/13/18 04:35 97.8 56 20 154/67 (96) 95 04/13/18 01:00 97.6 62 20 123/65 (84) 97 04/13/18 00:00 57 04/12/18 20:37 98.4 62 20 138/64 (88) 97 04/12/18 20:20 Nasal Cannula 3.00 04/12/18 18:06 65 04/12/18 16:36 97.4 57 20 144/65 (91) 98 04/12/18 12:00 98.2 54 20 135/64 (87) 97 04/12/18 10:06 62 04/12/18 08:53 98.2 58 18 159/69 (99) 97 04/12/18 08:45 2.00 I/O 04/12/18 04/12/18 04/12/18 04/13/18 04/13/18 04/13/18 07:00 15:00 23:00 07:00 15:00 23:00 Intake Total 360 ml 720 ml Balance 360 ml 720 ml Intake Oral 360 ml 720 ml # Voids 0 1 4 2 # Bowel Movements 0 2 1 (Megha Obando MD R3) Result Diagram: 04/10/18 0610 04/12/18 0640 Objective Remarks GENERAL: elderly female, lying in bed in no obvious distress SKIN: No rashes, or lesions. Cool and dry. Scattered ecchymoses on legs and arms. EYES: EOM grossly I. NECK: No lymphadenopathy. Supple, nontender. CARDIOVASCULAR: Regular rate with 2/6 systolic murmur. RESPIRATORY: Normal work of breathing. Good air movement. Mild congestion at the bases bilaterally. Breath sounds equal bilaterally. No wheezes to auscultation GASTROINTESTINAL: Abdomen soft, non-tender, nondistended. Genitourinary: No CVA tenderness. MUSCULOSKELETAL: Extremities without edema. No joint tenderness, effusion, or edema noted. No calf tenderness. 2+ DP bilaterally. NEUROLOGICAL: Awake and alert. (Megha Obando MD R3) A/P Assessment and Plan 87-year-old female with history of Parkinson's, depression, recurrent falls presents after a fall and being on the ground for night. Found to have rhabdomyolysis and Afib with RVR. Rhabdo and atrial fibrillation with RVR now resolved. Currently being treated for ESBL UTI. Discharge Planning Anticipate discharge to SNF today- will be going to [place] ([id number] signed) She will need to continue to take ertapenem per ID and follow up with urology for possible stone. PT recommends PT at rehab. (Megha Obando MD R3) Attending Attestation Patient seen and examined. Case reviewed and discussed with the resident team. Agree with plan of care as discussed with me and documented in the resident note. saw her with her daughter in law present. her family and pt agree with going to [facility] today (Shelby Mobley MD) Problem List: (1) UTI (urinary tract infection) ICD Codes: N39.0 - Urinary tract infection, site not specified Status: Acute Plan: Clinically improving. 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 Questionable related to renal stone? Infectious disease consulted Ertapenem 1000 mg IV every 24 started on 04/10 (patient to complete 14 total days- medication filled out in the discharge section per infectious disease) Patient is to follow-up with urologist as an outpatient for possible kidney stone Previous antibiotics: -Patient started on Rocephin 1gm daily 04/06-04/07 Given 3 doses of Zosyn on 04/07-04/08 Started imipenem 500 mg IV every 6 hours Imaging: Ultrasound kidneys-no hydronephrosis or acute abnormality. Echogenic focus in the right upper pole is nonspecific and could represent renal sinus fat versus a renal stone. (2) Pleural effusion ICD Codes: J90 - Pleural effusion, not elsewhere classified Status: Acute Plan: Clinically improving However worsening bilateral pleural effusions on chest x-ray on 04/10, which is likely related to aggressive IV hydration for rhabdomyolysis Lasix 40 mg IV 1 on 04/11 Giving lasix 40 mg PO on 04/12- Repeat CXR shows improvement Oxygen walk test on 04/12 failed- will need oxygen at SNF (3) Atrial fibrillation ICD Codes: I48.91 - Unspecified atrial fibrillation Status: Acute Plan: Impression: Patient found to be in atrial fibrillation on EKG and exam, this is new for her. [id number] 3+; frequent falls at home -2D echocardiogram-ejection fraction 45-50%. -Continue Telemetry Continue metoprolol 50 mg p.o. every 12 hours Anticoagulation -Discussion regarding the benefits and risks of anticoagulation were made with patient and her son. Due to recent falls and PT recommendation that patient has current unsafe gait/balance deficits, it was agreed upon that patient would be unsafe for anticoagulation due to risk of serious bleed. -We agreed to continuing patient's home ASA 81mg (4) Falls ICD Codes: W19.XXXA - Unspecified fall, initial encounter Plan: Patient with history of ataxic gait with parkinsonian symptoms. Currently on Sinemet. -OOB with assistance -Physical therapy evaluation-Recommend inpatient physical therapy -OT evaluation- rehabilitation recommended -Continue home Sinemet (5) Parkinsonian features ICD Codes: R25.9 - Parkinsonian features Status: Acute Plan: See plan above for falls Continue home Sinemet Permanent Comment: Affecting gait Last Edited By: Jacob Diaz on Dec 22, 2013 11:26 (6) Hypoxia ICD Codes: R09.02 - Hypoxemia Status: Acute Plan: Impression: O2 saturations to mid 80's when transferring. Coexistent intermittent RVR CXR 04/06 unremarkable. Chest x-ray 04/08 shows bilateral infiltrates as above. Chest x-ray on 04/10-bilateral pleural effusions, consistent with fluid overload. See above chest xray ordered for 04/13 -Continue O2 supplementation as needed for sats less than 92 -incentive spirometry (7) Depressive disorder ICD Codes: F32.9 - Depressive disorder Status: Chronic Plan: Stable Continue home Effexor & Ativan PRN (8) Rhabdomyolysis ICD Codes: M62.82 - Rhabdomyolysis Status: Resolved Plan: Found to be in rhabdomyolysis with a creatinine of 2030 on admission. 604 on 04/07 Resolved with fluid hydration (9) FEN Status: Acute Plan: Fluids: tolerating PO Electrolytes: monitor, replace PRN Nutrition: regular diet DVT ppx: Lovenox 40mg daily (Megha Obando MD R3) Problem Qualifiers (1) UTI (urinary tract infection): Qualified Codes: N30.00 - Acute cystitis without hematuria (2) Atrial fibrillation: Qualified Codes: I48.1 - Persistent atrial fibrillation (3) Falls: Qualified Codes: W19.XXXD - Unspecified fall, subsequent encounter (4) Rhabdomyolysis: Megha Obando MD R3 Apr 13, 2018 07:56 Shelby Mobley MD Apr 13, 2018 14:10
[2018-04-13] MEDS: METOPROLOL TARTRATE 50 MG TAB PO SCH (08:37)
[2018-04-13] MEDS: DOCUSATE SODIUM 100 MG CAP PO SCH (08:37)
[2018-04-13] MEDS: VENLAFAXINE HCL XR 75 MG CAP PO SCH (08:37)
[2018-04-13] MEDS: CHOLECALCIFEROL (VIT D3) 1000 UNIT TAB PO SCH (08:37)
[2018-04-13] MEDS: CARBIDOPA/LEVODOPA 25 MG/100 MG TAB PO SCH ×3 (08:37→17:06)
[2018-04-13] MEDS: SODIUM CHLORIDE 0.9% FLUSH 10 ML FLUSH IV FLUSH SCH (08:38)
[2018-04-13] MEDS: ASPIRIN EC 81 MG TABEC PO SCH (08:38)
[2018-04-13] MEDS: DORZOLAMIDE 2% OPTH SOLN 200 DROP/10 ML BTLO EACH EYE SCH (08:39)
--- NOTE | 2018-04-13 09:34 | RADRPT ---
EXAM DATE: 04/13/2018 9:13 AM EDT AGE/SEX: 87 years / Female INDICATIONS: Short of breath. CLINICAL DATA: This is the patient's subsequent encounter. Patient reports that signs and symptoms h ave been present for 4 - 6 days and indicates a pain score of 0/10. MEDICAL/SURGICAL HISTORY: . Parkinson's disease . Hysterectomy. COMPARISON: . FINDINGS: Interval improvement with less interstitial edema. Minimal bibasilar parenchymal changes persist with small bilateral pleural effusions. The heart remains minimally enlarged. Minimal apical pleural thic kening is evident. There is no pneumothorax. CONCLUSION: Interval improvement with less interstitial edema. Small bilateral pleural effusions persist. Electronically signed by: Cade Krishnamurthy MD 04/13/2018 9:32 AM EDT
[2018-04-13 11:32] LABS: BICARBONATE 27.9 MEQ/L (21.0-32.0); CALCIUM 8.4 MG/DL (8.5-10.1); CREATININE 0.59 MG/DL (0.50-1.00)
[2018-04-13 11:51] LABS: AUTOMATED NEUTROPHIL # 5.1 TH/MM3 (1.8-7.7); BASOPHIL % 0.6 % (0.0-2.0); EOSINOPHIL # 0.2 TH/MM3 (0-0.4); HEMOGLOBIN 11.3 GM/DL (11.6-15.3); LYMPH % 12.8 % (9.0-44.0); LYMPHOCYTE # 0.9 TH/MM3 (1.0-4.8); MEAN CELL VOLUME 97.6 FL (80.0-100.0); MEAN CORPUSCULAR HEMOGLOBIN 33.5 PG (27.0-34.0); MEAN CORPUSCULAR HGB CONC 34.3 % (32.0-36.0); MEAN PLATELET VOLUME 8.1 FL (7.0-11.0); MONO % 7.7 % (0.0-8.0); MONOCYTE # 0.5 TH/MM3 (0-0.9); NEUT % 75.9 % (16.0-70.0); PLATELET COUNT 286 TH/MM3 (150-450); RED BLOOD COUNT 3.38 MIL/MM3 (4.00-5.30); RED CELL DISTRIBUTION WIDTH 13.6 % (11.6-17.2); WHITE BLOOD COUNT 6.7 TH/MM3 (4.0-11.0)
--- NOTE | 2018-04-13 11:55 | HHI.DS ---
Discharge Summary Admission Date Apr 06, 2018 at 11:04 Discharge Date: Apr 13, 2018 Admitting Diagnosis Rhabdomyolysis (1) UTI (urinary tract infection) Diagnosis: Principal Plan: Clinically improving. 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 Questionable related to renal stone? Infectious disease consulted Ertapenem 1000 mg IV every 24 started on 04/10 (patient to complete 14 total days- medication filled out in the discharge section per infectious disease) Patient is to follow-up with urologist as an outpatient for possible kidney stone Previous antibiotics: -Patient started on Rocephin 1gm daily 04/06-04/07 Given 3 doses of Zosyn on 04/07-04/08 Started imipenem 500 mg IV every 6 hours Imaging: Ultrasound kidneys-no hydronephrosis or acute abnormality. Echogenic focus in the right upper pole is nonspecific and could represent renal sinus fat versus a renal stone. ICD Codes: N39.0 - Urinary tract infection, site not specified Status: Acute (2) Pleural effusion Plan: Clinically improving However worsening bilateral pleural effusions on chest x-ray on 04/10, which is likely related to aggressive IV hydration for rhabdomyolysis Lasix 40 mg IV 1 on 04/11 Giving lasix 40 mg PO on 04/12- and repeating chest xray on 04/13. she has been requiring K+ repletion with lasix administration Oxygen walk test on 04/12 failed- will need oxygen at SNF ICD Codes: J90 - Pleural effusion, not elsewhere classified Status: Acute (3) Atrial fibrillation Plan: Impression: Patient found to be in atrial fibrillation on EKG and exam, this is new for her. [id number] 3+; frequent falls at home -2D echocardiogram-ejection fraction 45-50%. -Continue Telemetry Continue metoprolol 50 mg p.o. every 12 hours Anticoagulation -Discussion regarding the benefits and risks of anticoagulation were made with patient and her son. Due to recent falls and PT recommendation that patient has current unsafe gait/balance deficits, it was agreed upon that patient would be unsafe for anticoagulation due to risk of serious bleed. -We agreed to continuing patient's home ASA 81mg ICD Codes: I48.91 - Unspecified atrial fibrillation Status: Acute (4) Falls Plan: Patient with history of ataxic gait with parkinsonian symptoms. Currently on Sinemet. -OOB with assistance -Physical therapy evaluation-Recommend inpatient physical therapy -OT evaluation- rehabilitation recommended -Continue home Sinemet ICD Codes: W19.XXXA - Unspecified fall, initial encounter (5) Parkinsonian features Plan: See plan above for falls Continue home Sinemet ICD Codes: R25.9 - Parkinsonian features Status: Acute (6) Hypoxia Plan: Impression: O2 saturations to mid 80's when transferring. Coexistent intermittent RVR CXR 04/06 unremarkable. Chest x-ray 04/08 shows bilateral infiltrates as above. Chest x-ray on 04/10-bilateral pleural effusions, consistent with fluid overload. See above chest xray ordered for 04/13 -Continue O2 supplementation as needed for sats less than 92 -incentive spirometry ICD Codes: R09.02 - Hypoxemia Status: Acute (7) Depressive disorder Plan: Stable Continue home Effexor & Ativan PRN ICD Codes: F32.9 - Depressive disorder Status: Chronic (8) FEN Plan: Fluids: tolerating PO Electrolytes: monitor, replace PRN Nutrition: regular diet DVT ppx: Lovenox 40mg daily Status: Acute (9) Rhabdomyolysis Diagnosis: Principal Plan: Found to be in rhabdomyolysis with a creatinine of 2030 on admission. 604 on 04/07 Resolved with fluid hydration ICD Codes: M62.82 - Rhabdomyolysis Status: Resolved Brief History 87-year-old female presenting to the emergency department after a fall at home that appears to be a mechanical fall. Patient is a poor historian but states that she had a fall at home at approximately 5 PM yesterday evening and was unable to get up. She was on the ground until approximately 9 AM when her son found her and helped her up. She was placed in bed but was unable to ambulate on her own and so she was brought into the emergency department for further evaluation. She has a history of recurrent falls and is currently in independent living at [facility]. Over the last several months, she has fallen several times at home that she describes as mechanical falls. Her most recent fall yesterday, she denies hitting her head or losing consciousness. She has become more unstable and ataxic at home as well as significantly weaker and lethargic. This is been progressive for several months as have been her falls at home. Denies any other preceding symptoms, including dizziness, chest pain, shortness of breath. Denies any fever or chills, recent illness. This morning, she states that she feels well but continues to have some pain in her right shoulder. She does feel fatigued/weak but denies any fevers or chills , denies shortness of breath, denies peripheral edema, denies chest pain or palpitations. She was found to be in atrial fibrillation with an occasional rapid heart rate. CBC/BMP: 04/10/18 0610 04/13/18 0944 Significant Findings Laboratory Tests Test 04/11/18 06:30 04/12/18 06:40 04/13/18 09:44 04/13/18 11:06 Calcium Level 8.3 MG/DL (8.5-10.1) 8.1 MG/DL (8.5-10.1) 8.4 MG/DL (8.5-10.1) PE at Discharge GENERAL: elderly female, lying in bed in no obvious distress SKIN: No rashes, or lesions. Cool and dry. Scattered ecchymoses on legs. EYES: EOM grossly I. NECK: No lymphadenopathy. Supple, nontender. CARDIOVASCULAR: Regular rate with 2/6 systolic murmur. RESPIRATORY: Mild congestion at the bases bilaterally. Breath sounds equal bilaterally. No wheezes to auscultation GASTROINTESTINAL: Abdomen soft, non-tender, nondistended. Genitourinary: No CVA tenderness. MUSCULOSKELETAL: Extremities without edema. No joint tenderness, effusion, or edema noted. No calf tenderness. NEUROLOGICAL: Awake and alert. Transfer Summary Pt is an 87 year old admitted due to rhabdomyolysis and a urinary tract infection. She was initially started on Rocephin as well as IV fluids. Microbiology was significant for ESBL. Infectious disease was consulted and antibiotic was changed to ertapenem. Infectious disease has made arrangements for outpatient IV management with ertapenem. She was noted to have bilateral pleural effusions which were thought to be related to aggressive IV hydration. CK was trended and decreased significantly. She will require oxygen upon discharge based on results of oxygen walk test. Patient to be [facility]. This was discussed with patients son who agrees with the above plan. All questions were answered. Pt Condition on Discharge: Stable Discharge Disposition: Discharge to SNF Discharge Instructions DIET: Follow Instructions for: As Tolerated, No Restrictions Activities you can perform: Regular-No Restrictions Other Activity Instructions: Out of bed with assistance Follow up Referrals: Cardiology - 1 Month PCP Follow-up - 1 Week with Jacob Diaz MD Urology - 1 Week New Medications: Epinephrine Inj (Epinephrine Inj) 1 Mg/Ml (1 Ml) Inj 0.3 MG IV PUSH ONCE PRN for ALLERGIC REACTION, #1 VIAL Epinephrine Inj (Epinephrine Inj) 1 Mg/Ml (1 Ml) Inj 0.3 MG SQ ONCE PRN for ALLERGIC REACTION, #1 VIAL Give with any signs of respiratory distress. Ertapenem Inj (Invanz Inj) 1 Gm Addvial 1 GM IV Q24H for Infection for 10 Days, INJECTION 0 Refills ADMINISTER IN 100ML NS Hydrocortisone Inj (Solu-Cortef Inj) 250 Mg/2 Ml Inj 250 MG IV PUSH ONCE PRN for ALLERGIC REACTION, #1 VIAL 0 Refills Give over 30-60 seconds. Oxygen (O2) (Oxygen (O2)) Device LITER MARCY.CANULA CONTINUOUS for Prevent Hypoxemia, #3 Oxygen Concentrator Portable Gaseous 2 L/min via Nasal [place] Continuous For [address] (Aspirin DR) 81 Mg Tabdr 81 MG PO DAILY, #30 TAB Cholecalciferol (Gnp Vitamin D3 Extra Stre) 1,000 Unit Tab 1000 UNITS PO DAILY, #30 TAB Metoprolol Tartrate (Lopressor) 50 Mg Tab 50 MG PO Q12HR, #30 TAB Continued Medications: Calcitonin ([place]) Nasal [place] (Calcitonin ([place]) Nasal [place]) 200 Units/Act Soln 1 SPRAY NASAL DAILY for Osteoporosis, #3.7 ML 0 Refills Alternate nostrils daily. Carbidopa-Levodopa (Carbidopa-Levodopa) 25-100 Mg Tab 1 TAB PO TID for Parkinson Disease Mgmt, #120 TAB 6 Refills Docusate Sodium (Docusate Sodium) 100 Mg Cap 200 MG PO HS for Prevent Constipation, #60 CAP 0 Refills Dorzolamide Opth Drops (Dorzolamide Opth Drops) 2% Soln 1 DROP EACH EYE BID for Glaucoma, #1 BOTTLE 0 Refills Latanoprost Opth Drops (Latanoprost Opth Drops) 0.005% Drops 1 DROP EACH EYE HS for Glaucoma, #2.5 ML 0 Refills Refrigerate until opened. Lorazepam (Lorazepam) 0.5 Mg Tab 0.5 MG PO DIRECTED PRN for ANXIETY AND/OR INSOMNIA, #60 TAB 0 Refills 1-2 tabs (0.5-1mg) at bedtime as needed for sleep Tramadol (Tramadol) 50 Mg Tab 50 MG PO Q6H PRN for PAIN, TAB 0 Refills Venlafaxine ER 24 HR (Effexor XR 24 HR) 150 Mg Cap 150 MG PO DAILY, #90 CAP 3 Refills Megha Obando MD R3 Apr 13, 2018 11:55
[2018-04-13 12:15] LABS: BICARBONATE 27.1 MEQ/L (21.0-32.0); CALCIUM 8.3 MG/DL (8.5-10.1); CREATININE 0.67 MG/DL (0.50-1.00)
[2018-04-13] MEDS: ERTAPENEM INJ 1,000 MG in SODIUM CHLORIDE 0.9% INJ 100 ML IV SCH (15:35)
== END 2018-04-13 18:16 | DRG 557 ==
LOC: NEPC 17:57 → NEDA 21:21 → NEPFCDU 22:29 → OBSVTOIN 04-06 11:04 → N05B 04-08 06:53
PROVIDERS: ADMIT Family Medicine; ATTEND Family Medicine
DX: M62.82 Rhabdomyolysis (principal); J18.9 Pneumonia, unspecified organism; J90 Pleural effusion, not elsewhere classified; G20 Parkinson's disease; I48.1 Persistent atrial fibrillation; E87.70 Fluid overload, unspecified; N30.00 Acute cystitis without hematuria; R09.02 Hypoxemia; B96.20 Unspecified Escherichia coli [E. coli] as the cause of diseases classified elsewhere; I10 Essential (primary) hypertension; K59.09 Other constipation; Z66 Do not resuscitate; R29.6 Repeated falls; F41.8 Other specified anxiety disorders; R26.0 Ataxic gait; F32.9 Major depressive disorder, single episode, unspecified; W19.XXXA Unspecified fall, initial encounter; Z87.442 Personal history of urinary calculi; Z91.81 History of falling; Z87.440 Personal history of urinary (tract) infections; Z90.710 Acquired absence of both cervix and uterus; E87.6 Hypokalemia
CPT/HCPCS: 36569; 71045; 71046; 73030; 76775; 76937; 80048; 80053; 81001; 82306; 82550; 82552; 83735; 83880; 84443; 84484; 85025; 85610; 85730; 87077; 87086; 87186; 93005; 93306; 94150; 94618; 94640; 94664; G8987-GO; G8987-GP; G8988-GO; G8988-GP; J0696; J0743; J1335; J1650; J1940; J2543; J2765; J3370; J7030; J7040; J7050

== ENCOUNTER 2018-04-25 13:22 | Observation (INO) | payer MEDICARE ==
[2018-04-25] VITALS (7 sets, daily range): BP systolic 124–175; BP diastolic 66–85; PULSE 61–84; RESP 18–19; TEMP 97.7–98; O2SAT 95–98
[~2018-04-25] VITALS: Ht 152.4 cm; Wt 53.5 kg
[~2018-04-25 13:22] MED LIST changes: +CALC200S NASAL; +CHOL1000 PO; +ECASA81 PO; +EPIN1INJ21 IV PUSH; +EPIN1INJ21 SQ; +INVA1INJ IV; +METO-309 PO; +OXYGENDME NAS.CANULA; +SOLU250I IV PUSH; -SULF1TAB23 PO; +TRAM50TA PO
--- NOTE | 2018-04-25 14:19 | PD ---
HPI Chief Complaint: Altered Mental Status Time Seen by Provider: 13:48 Travel History International Travel<30 days: No Contact w/Intl Traveler<30days: No Traveled to known affect area: No History of Present Illness HPI 87yo F with PMH of Parkinson's disease was sent here from rehab because of altered mental status. Pt's son said he was having a conversation with her yesterday at 5pm and today he visited her at noon and she did not even recognize him. Said this is not all normal mental status. Has been deteriorating since . Said pt was staring in space with shaking movements in her arms today and not sure if it was a seizure. Pt does have anxiety and was given lorazepam in rehab prior to arrival. Pt is AAOx0 and opens her eyes but does not recognize son. Pt was just admitted for ESBL UTI and rhabdomyolysis 04/06/18-/04/13/18 and had PICC line and finished antibiotic yesterday. PFSH Past Medical History Anxiety: Yes Depression: Yes Heart Rhythm Problems: No Cancer: No Cardiovascular Problems: Yes (A-FIB) High Cholesterol: No Cerebrovascular Accident: No Dementia: Yes Diabetes: No Diminished Hearing: No Endocrine: No Genitourinary: Yes (KIDNEY STONes) Hepatitis: No Hiatal Hernia: No Immune Disorder: No Kidney Stones: Yes Medical other: Yes (HISTORY OF FALLS) Musculoskeletal: No Neurologic: Yes (PARKINSON) Parkinson's Disease: Yes Psychiatric: Yes (ANXIETY DEPRESSION) Reproductive: No Respiratory: No Migraines: No Seizures: No Thyroid Disease: No Influenza Vaccination: Yes Menopausal: Yes Past Surgical History Abdominal Surgery: No AICD: No Cardiac Surgery: No Ear Surgery: No Endocrine Surgery: No Eye Surgery: Yes (cataract) Genitourinary Surgery: No Gynecologic Surgery: Yes (HYSTERECTOMY) Joint Replacement: No Oral Surgery: No Pacemaker: No Other Surgery: Yes (NEPHROSTOMY TUBE PLACED AND REMOVED) Social History Alcohol Use: No Tobacco Use: No Substance Use: No Allergies-Medications (Allergen,Severity, Reaction): Coded Allergies: No Known Allergies (Unverified , 04/25/18) Reported Meds & Prescriptions Reported Meds & Active Scripts Active Aspirin DR (Aspirin) 81 Mg Tabdr 81 Mg PO DAILY Effexor XR 24 HR (Venlafaxine HCl) 150 Mg Cap 150 Mg PO DAILY Carbidopa-Levodopa 25-100 Mg Tab 1 Tab PO TID Reported Ativan (Lorazepam) 0.5 Mg Tab 0.5-1 Mg PO DAILY PRN Sodium Chloride Flush (Sodium Chloride) 0.9 % Inj 10 Ml IV FLUSH Q8HR Flush IV midline after every shift Calcitonin ([place]) Nasal [place] (Calcitonin [place]) 200 Units/Act Soln 1 [place] NASAL DAILY Alternate nostrils daily. Tramadol (Tramadol HCl) 50 Mg Tab 50 Mg PO Q6H PRN Docusate Sodium 100 Mg Cap 200 Mg PO HS Dorzolamide Opth Drops (Dorzolamide HCl) 2% Soln 1 Drop EACH EYE BID Latanoprost Opth Drops (Latanoprost) 0.005% Drops 1 Drop EACH EYE HS Refrigerate until opened. Review of Systems Except as stated in HPI: all other systems reviewed are Neg Physical Exam Narrative GENERAL: 87yo F not in distress. SKIN: Focused skin assessment warm/dry. HEAD: Atraumatic. Normocephalic. EYES: Pupils equal and round. No scleral icterus. No injection or drainage. ENT: No nasal bleeding or discharge. Mucous membranes pink and moist. NECK: Trachea midline. No JVD. CARDIOVASCULAR: Regular rate and rhythm. No murmur appreciated. RESPIRATORY: No accessory muscle use. Clear to auscultation. Breath sounds equal bilaterally. GASTROINTESTINAL: Abdomen soft, non-tender, nondistended. MUSCULOSKELETAL: No obvious deformities. No clubbing. No cyanosis. No edema. NEUROLOGICAL: Easily arousable. Moves extremities but not to command. AAOx0. Data Data Last Documented VS Vital Signs Date Time Temp Pulse Resp B/P (MAP) Pulse Ox O2 Delivery O2 Flow Rate FiO2 04/25/18 13:58 72 18 96 Room Air 04/25/18 13:42 97.7 124/85 (98) Orders Orders Ct Brain W/O Iv Contrast(Rout) (04/25/18 ) Complete Blood Count With Diff (04/25/18 14:12) Basic Metabolic Panel (Bmp) (04/25/18 14:12) Urinalysis - C+S If Indicated (04/25/18 14:12) Chest, Single Ap (04/25/18 ) Thyroid Stimulating Hormone (04/25/18 14:12) Electrocardiogram (04/25/18 ) Creatine Kinase (Cpk) (04/25/18 14:19) Cath For Specimen (04/25/18 14:20) Potassium Chloride Eff (K-Lyte Cl Eff) (04/25/18 15:45) Urine Culture (04/25/18 14:40) Magnesium (Mg) (04/25/18 16:18) Eeg Study (04/25/18 ) Mri Brain W/O Contrast (04/25/18 ) ^ Seizure Precautions (04/25/18 16:18) ^ Fall Precautions (04/25/18 16:18) Speech Therapy Consult-Eval/Tx (04/25/18 16:18) Place In Observation (04/25/18 ) Vital Signs (Adult) MANJINDER.Q4H (04/25/18 16:19) Neuro Checks . ORDERED (04/25/18 16:19) Activity Oob With Assistance (04/25/18 16:19) Zipper Lining Folder / Telemetry MANJINDER.Q8H (04/25/18 16:19) Resp Oxygen Cam C Titrat 1-4 L (04/25/18 ) Sodium Chlor 0.9% 1000 Ml Inj (Ns 1000 M (04/25/18 16:19) Sodium Chloride 0.9% Flush (Ns Flush) (04/25/18 16:30) Sodium Chloride 0.9% Flush (Ns Flush) (04/25/18 21:00) Nursing Bedside Swallow Assess .ONCE (04/25/18 16:19) ^ Other Nursing Orders (04/25/18 16:19) Admit Order (Ed Use Only) (04/25/18 16:21) Place In Observation (04/25/18 ) Labs Laboratory Tests Test 04/25/18 14:40 White Blood Count 6.2 TH/MM3 Red Blood Count 3.38 MIL/MM3 Hemoglobin 11.3 GM/DL Hematocrit 33.2 % Mean Corpuscular Volume 98.3 FL Mean Corpuscular Hemoglobin 33.5 PG Mean Corpuscular Hemoglobin Concent 34.1 % Red Cell Distribution Width 13.8 % Platelet Count 200 TH/MM3 Mean Platelet Volume 7.5 FL Neutrophils (%) (Auto) 69.0 % Lymphocytes (%) (Auto) 17.2 % Monocytes (%) (Auto) 8.3 % Eosinophils (%) (Auto) 4.3 % Basophils (%) (Auto) 1.2 % Neutrophils # (Auto) 4.3 TH/MM3 Lymphocytes # (Auto) 1.1 TH/MM3 Monocytes # (Auto) 0.5 TH/MM3 Eosinophils # (Auto) 0.3 TH/MM3 Basophils # (Auto) 0.1 TH/MM3 CBC Comment DIFF FINAL Differential Comment Urine Color YELLOW Urine Turbidity HAZY Urine pH 7.0 Urine Specific [place] 1.012 Urine Protein NEG mg/dL Urine Glucose (UA) NEG mg/dL Urine Ketones TRACE mg/dL Urine Occult Blood NEG Urine Nitrite NEG Urine Bilirubin NEG Urine Urobilinogen 2.0 mg/dL Urine Leukocyte Esterase NEG Urine RBC LESS THAN 1 /hpf Urine WBC 4 /hpf Urine Squamous Epithelial Cells <1 /hpf Urine Amorphous Sediment FEW Urine Bacteria OCC /hpf Microscopic Urinalysis Comment CATH-CULTURE IND Blood Urea Nitrogen 14 MG/DL Creatinine 0.58 MG/DL Random Glucose 83 MG/DL Calcium Level 8.8 MG/DL Sodium Level 145 MEQ/L Potassium Level 3.0 MEQ/L Chloride Level 111 MEQ/L Carbon Dioxide Level 25.8 MEQ/L Anion Gap 8 MEQ/L Estimat Glomerular Filtration Rate 98 ML/MIN Magnesium Level 2.0 MG/DL Total Creatine Kinase 49 U/L Thyroid Stimulating Hormone 3rd Gen 1.670 uIU/ML MDM Medical Decision Making Medical Screen Exam Complete: Yes Emergency Medical Condition: Yes Interpretation(s) EKG: NSR 65bpm. LAD. No ST segment elevation or depression. Differential Diagnosis CVA vs. delirium vs. dehydration vs. UTI vs. worsening dementia Narrative Course 87yo F was brought in for altered mental status. Pt's son who is a physical therapist is here with her and said this is very acute. Pt was just talking normally yesterday but does not even recognize her son today. Said he was having conversation with her yesterday. Labs reviewed, no leukocytosis. H/H low but at baseline. Mild hypokalemia at 3.0, replaced orally. CPK normal. TSH normal. Creatinine normal. UA showed occasional bacteria. WBC is only 4. CXR negative. CT brain negative for acute intracranial abnormalities. I discussed goals of care with son and he said because this is so acute, he would want a work up including neurology consult and MRI. Pt is afebrile and awake and opens eyes. Said what sounds like May but not her name. Discussed with Dr. Juares who is helping the residents and said to admit to Dr. Bartlett. Diagnosis Primary Impression: Altered mental status Qualified Codes: R41.82 - Altered mental status, unspecified Admitting Information Admitting Physician Requests: Observation Monica Campos DO Apr 25, 2018 14:19
--- NOTE | 2018-04-25 14:41 | RADRPT ---
EXAM DATE: 04/25/2018 2:35 PM EDT AGE/SEX: 87 years / Female INDICATIONS: Altered mental status. CLINICAL DATA: This is the patient's initial encounter. Patient reports that signs and symptoms have been present for 1 day and indicates a pain score of Nonresponsive. MEDICAL/SURGICAL HISTORY: . Parkinson's disease. . Hysterectomy. COMPARISON: [facility], CHEST SINGLE AP, 04/06/2018. . FINDINGS: A single AP view of the chest demonstrates the lungs to be symmetrically aerated without evidence of mass, infiltrate or effusion. Biapical scarring. Heart normal in size. The cardiomediastinal contours are unremarkable. Osseous structures are intact. CONCLUSION: Stable biapical scarring. No acute cardiopulmonary disease. Electronically signed by: Que Bell MD 04/25/2018 2:40 PM EDT
[2018-04-25 15:02] LABS: AUTOMATED NEUTROPHIL # 4.3 TH/MM3 (1.8-7.7); BASOPHIL # 0.1 TH/MM3 (0-0.2); BASOPHIL % 1.2 % (0.0-2.0); EOSINOPHIL # 0.3 TH/MM3 (0-0.4); EOSINOPHIL % 4.3 % (0.0-4.0); HEMATOCRIT 33.2 % (35.0-46.0); HEMOGLOBIN 11.3 GM/DL (11.6-15.3); LYMPH % 17.2 % (9.0-44.0); LYMPHOCYTE # 1.1 TH/MM3 (1.0-4.8); MEAN CELL VOLUME 98.3 FL (80.0-100.0); MEAN CORPUSCULAR HEMOGLOBIN 33.5 PG (27.0-34.0); MEAN CORPUSCULAR HGB CONC 34.1 % (32.0-36.0); MEAN PLATELET VOLUME 7.5 FL (7.0-11.0); MONO % 8.3 % (0.0-8.0); MONOCYTE # 0.5 TH/MM3 (0-0.9); PLATELET COUNT 200 TH/MM3 (150-450); RED BLOOD COUNT 3.38 MIL/MM3 (4.00-5.30); RED CELL DISTRIBUTION WIDTH 13.8 % (11.6-17.2); WHITE BLOOD COUNT 6.2 TH/MM3 (4.0-11.0)
--- NOTE | 2018-04-25 15:27 | RADRPT ---
EXAM DATE: 04/25/2018 3:15 PM EDT AGE/SEX: 87 years / Female INDICATIONS: Altered mental status. CLINICAL DATA: This is the patient's initial encounter. Patient reports that signs and symptoms have been present for 1 day and indicates a pain score of Nonresponsive. MEDICAL/SURGICAL HISTORY: Cardiovascular disease. Parkinson, dementia. None. RADIATION DOSE: 36.08 CTDI (mGy) ; Patient motion COMPARISON: No prior exams available for comparison. TECHNIQUE: CT of the head without contrast. Using automated exposure control and adjustment of the mA and/or kV according to patient size, radiation dose was kept as low as reasonably achievable to ob tain optimal diagnostic quality images. DICOM format image data is available electronically for revi ew and comparison. FINDINGS: Cerebrum: The ventricles are normal for age. No evidence of midline shift, mass lesion, hemorrhage or acute infarction. No extraaxial fluid collections are seen. Posterior Fossa: The cerebellum and brainstem are intact. The 4th ventricle is midline. The cerebe llopontine angle is unremarkable. Extracranial: The visualized portion of the orbits is intact. Skull: The calvaria is intact. No evidence of skull fracture. CONCLUSION: 1. No acute intracranial abnormalities. Likely chronic white matter ischemic changes. Electronically signed by: Vel Canchola MD 04/25/2018 3:25 PM EDT
[2018-04-25 15:35] LABS: BICARBONATE 25.8 MEQ/L (21.0-32.0); CALCIUM 8.8 MG/DL (8.5-10.1); CREATININE 0.58 MG/DL (0.50-1.00)
[2018-04-25 15:44] LABS: AMORPHOUS SEDIMENT, URINE FEW; BACTERIA, URINE OCC /hpf; BILIRUBIN, URINE NEG (NEG); BLOOD, URINE NEG (NEG); GLUCOSE,URINE NEG (NEG); KETONE, URINE TRACE mg/dL (NEG); NITRITE,URINE NEG (NEG); SQUAMOUS EPITHELIAL CELL URINE <1 /hpf (0-5); URINE COLOR YELLOW (YELLW/STRAW); URINE LEUKOCYTE ESTERASE NEG (NEG)
[2018-04-25] MEDS ORDERED: POTASSIUM CHLORIDE 25 MEQ EFFERVESCENT TAB PO ONE (15:45)
[2018-04-25] MEDS ORDERED: LORA-474 PO (16:07)
[2018-04-25] MEDS ORDERED: SODI0.9I29 IV FLUSH (16:07)
[2018-04-25] MEDS ORDERED: LORA-392 PO (16:07)
[2018-04-25] MEDS ORDERED: SODIUM CHLORIDE 0.9% FLUSH 10 ML FLUSH IV FLUSH PRN (16:30)
[2018-04-25] MEDS: SODIUM CHLOR 0.9% 1000 ML INJ 1,000 ML IV SCH (17:30)
--- NOTE | 2018-04-25 17:40 | RADRPT ---
EXAM DATE: 04/25/2018 5:10 PM EDT AGE/SEX: 87 years / Female INDICATIONS: Seizures. Decreased level of consciousness. CLINICAL DATA: This is the patient's initial encounter. Patient reports that signs and symptoms have been present for 1 day and indicates a pain score of 0/10. MEDICAL/SURGICAL HISTORY: . Parkinson. Hysterectomy. COMPARISON: No prior exams available for comparison. TECHNIQUE: Multiplanar, multisequence examination of the brain was performed without contrast. FINDINGS: No recent infarct identified on the diffusion weighted images. There is severe chronic ischemic hanson es in periventricular white matter with innumerable small hemosiderin deposits in the brain on the ott sceptibility weighted images. There is also white matter ischemic changes in the brainstem. No mass e ffect or shift. No hydrocephalus. No abnormal extra-axial fluid collections. CONCLUSION: 1. No acute infarct. Severe white matter ischemic changes. Innumerable tiny hemosiderin deposits in the brain with blooming artifact on susceptibility weighted images. Electronically signed by: Vel Canchola MD 04/25/2018 5:39 PM EDT
[2018-04-25] MEDS: SODIUM CHLORIDE 0.9% FLUSH 10 ML FLUSH IV FLUSH SCH (23:02)
[2018-04-26] VITALS (9 sets, daily range): BP systolic 148–183; BP diastolic 66–81; PULSE 57–85; RESP 16–18; TEMP 97.5–97.9; O2SAT 95–100
[2018-04-26] MEDS ORDERED: traMADol HCL 50 MG TAB PO PRN (08:30)
[2018-04-26] MEDS ORDERED: LORazepam 0.5 MG TAB PO PRN (08:30)
[2018-04-26] MEDS: SODIUM CHLOR 0.9% 1000 ML INJ 1,000 ML IV SCH (08:31)
[2018-04-26] MEDS: SODIUM CHLORIDE 0.9% FLUSH 10 ML FLUSH IV FLUSH SCH ×2 (08:31→22:46)
[2018-04-26] MEDS ORDERED: POTASSIUM CHLORIDE 25 MEQ EFFERVESCENT TAB PO ONE (09:00)
--- NOTE | 2018-04-26 09:18 | HHI.HP ---
HPI Service Family Medicine Primary Care Physician Jacob Diaz MD Admission Diagnosis Altered mentat status, possible CVA Diagnoses: Chief Complaint: Confusion International Travel<30 Days: No Contact w/Intl Traveler<30days: No Known Affected Area: No History of Present Illness 87-year-old female with history of Parkinson's disease and recent ESBL UTI presenting for history of altered mental status. Pt's son said he was having a conversation with her at 5pm day prior to admission, and then he visited her at noon on day of admission and she did not recognize him. Per son this is not all her baseline. Reports patient has been deteriorating since . Per son she had an episode of staring in space with shaking movements in her arms on day of admission and he was not sure if it was a seizure. Pt does have anxiety and was given lorazepam in rehab prior to arrival to ED. Pt was just admitted for ESBL UTI and rhabdomyolysis 04/06/18-/04/13/18 and had PICC line and finished antibiotic day prior to admission. This morning the patient is awake and answers questions. She remembers who her son is (son at bedside). She does not remember the events leading up to her hospitalization. Per son, this is her baseline mental state. (Jona Hebert MD R2) Review of Systems Constitutional: DENIES: Fever, Chills Endocrine: DENIES: Heat/cold intolerance Eyes: DENIES: Vision loss Ears, nose, mouth, throat: DENIES: Throat pain, Ear Pain, Sinus Pain Respiratory: DENIES: Cough, Shortness of breath Cardiovascular: DENIES: Chest pain, Dyspnea on Exertion Gastrointestinal: DENIES: Abdominal pain, Constipation, Diarrhea, Nausea, Vomiting Genitourinary: DENIES: Urinary frequency, Dysuria Musculoskeletal: DENIES: Joint pain, Muscle aches Integumentary: DENIES: Rash Hematologic/lymphatic: DENIES: Lymphadenopathy Immunologic/allergic: DENIES: Eczema Neurologic: COMPLAINS OF: Seizures, DENIES: Headache, Localized weakness, Paresthesias Psychiatric: COMPLAINS OF: Anxiety, Confusion, DENIES: Depression, Hallucinations (Jona Hebert MD R2) Past Family Social History Past Medical History - Depression - gait abnormality which has responded to Sinemet therapy - recurrent UTIs for which she is on suppressive therapy with nitrofurantoin - renal calculi with obstruction of right ureter and hospitalization for UTI 2014 Past Surgical History - bilateral cataract surgery - tonsillectomy in 1930 - partial hysterectomy 1969 Reported Medications Reported Meds & Active Scripts Active Aspirin DR (Aspirin) 81 Mg Tabdr 81 Mg PO DAILY Effexor XR 24 HR (Venlafaxine HCl) 150 Mg Cap 150 Mg PO DAILY Carbidopa-Levodopa 25-100 Mg Tab 1 Tab PO TID Reported Ativan (Lorazepam) 0.5 Mg Tab 0.5-1 Mg PO DAILY PRN Sodium Chloride Flush (Sodium Chloride) 0.9 % Inj 10 Ml IV FLUSH Q8HR Flush IV midline after every shift Calcitonin ([place]) Nasal [place] (Calcitonin [place]) 200 Units/Act Soln 1 [place] NASAL DAILY Alternate nostrils daily. Tramadol (Tramadol HCl) 50 Mg Tab 50 Mg PO Q6H PRN Docusate Sodium 100 Mg Cap 200 Mg PO HS Dorzolamide Opth Drops (Dorzolamide HCl) 2% Soln 1 Drop EACH EYE BID Latanoprost Opth Drops (Latanoprost) 0.005% Drops 1 Drop EACH EYE HS Refrigerate until opened. (Jona Hebert MD R2) Allergies: Coded Allergies: No Known Allergies (Unverified , 04/25/18) Active Ordered Medications Current Medications Medications (Trade) Dose Ordered Sig/Willam Route Start Time Stop Time Status Last Admin Sodium Chloride 1,000 ml @ 60 mls/hr [id number] IV 04/25/18 16:19 04/26/18 08:31 (NS Flush) 2 ml UNSCH PRN IV FLUSH 04/25/18 16:30 (NS Flush) 2 ml BID IV FLUSH 04/25/18 21:00 04/25/18 23:02 (Ecotrin Ec) 81 mg DAILY PO 04/26/18 09:00 (Sinemet 25-100 Mg) 1 tab TID PO 04/26/18 09:00 (Colace) 200 mg HS PO 04/26/18 21:00 (Xalatan 0.005% Opth Soln) 1 drop HS EACH EYE 04/26/18 21:00 (Ativan) 0.5 mg DAILY PRN PO 04/26/18 08:30 (Ultram) 50 mg Q6H PRN PO 04/26/18 08:30 (Effexor Xr) 150 mg DAILY PO 04/26/18 09:00 Family History Father: at age 90 secondary to an infection Mother: at age 95 with Alzheimer's disease Siblings: one sister age 82 with dementia Children: to children alive and well Social History Marrital Status: Living Situation: independent apartment at [facility] Education: 4 years of college Work history: [employer], retired at age 67 Tobacco: none Alcohohol: 1 ounce of alcohol daily Illicit drug use: none (Jona Hebert MD R2) Physical Exam Vital Signs Vital Signs Date Time Temp Pulse Resp B/P (MAP) Pulse Ox O2 Delivery O2 Flow Rate FiO2 04/26/18 07:19 97.5 69 16 183/81 (115) 99 04/26/18 04:20 97.6 78 18 178/76 (110) 95 04/26/18 04:14 68 04/26/18 00:10 97.9 68 18 148/71 (96) 97 04/25/18 23:54 64 04/25/18 20:26 72 04/25/18 20:15 98.0 77 18 175/75 (108) 98 04/25/18 19:55 97 04/25/18 18:33 04/25/18 18:00 61 19 139/66 (90) 96 Room Air 04/25/18 16:30 78 19 172/77 (108) 95 Room Air 04/25/18 13:58 72 18 96 Room Air 04/25/18 13:42 97.7 84 19 124/85 (98) 96 Physical Exam GENERAL: WDWN thin elderly white female sitting up in bed, pleasant, NAD SKIN: No rashes, ecchymoses or lesions. Cool and dry. HEAD: NC/AT EYES: PERRL. EOMI. No conjunctival injection or drainage. ENT: MMM NECK: Supple. No JVD. CARDIOVASCULAR: NRRR. Normal S1/S2. No MRG RESPIRATORY: CTAB. No crackles or wheezes. GASTROINTESTINAL: Abdomen soft, non-distended, non-tender. No hepato- splenomegaly or palpable masses. MUSCULOSKELETAL: Extremities without clubbing, cyanosis, or edema. PICC in place RUE, site without erythema or edema. NEUROLOGICAL: Awake and alert. Oriented to person, place, time. Knows who the president is. Cranial nerves II through XII grossly intact. Strength 5/5 in all major muscle groups. Sensation intact to light touch except slightly decreased over left lower face. Mild pronator drift on right side. Normal speech. Laboratory Laboratory Tests Test 04/25/18 14:40 White Blood Count 6.2 Red Blood Count 3.38 Hemoglobin 11.3 Hematocrit 33.2 Mean Corpuscular Volume 98.3 Mean Corpuscular Hemoglobin 33.5 Mean Corpuscular Hemoglobin Concent 34.1 Red Cell Distribution Width 13.8 Platelet Count 200 Mean Platelet Volume 7.5 Neutrophils (%) (Auto) 69.0 Lymphocytes (%) (Auto) 17.2 Monocytes (%) (Auto) 8.3 Eosinophils (%) (Auto) 4.3 Basophils (%) (Auto) 1.2 Neutrophils # (Auto) 4.3 Lymphocytes # (Auto) 1.1 Monocytes # (Auto) 0.5 Eosinophils # (Auto) 0.3 Basophils # (Auto) 0.1 CBC Comment DIFF FINAL Differential Comment Urine Color YELLOW Urine Turbidity HAZY Urine pH 7.0 Urine Specific Superior 1.012 Urine Protein NEG Urine Glucose (UA) NEG Urine Ketones TRACE Urine Occult Blood NEG Urine Nitrite NEG Urine Bilirubin NEG Urine Urobilinogen 2.0 Urine Leukocyte Esterase NEG Urine RBC LESS THAN 1 Urine WBC 4 Urine Squamous Epithelial Cells <1 Urine Amorphous Sediment FEW Urine Bacteria OCC Microscopic Urinalysis Comment CATH-CULTURE IND Blood Urea Nitrogen 14 Creatinine 0.58 Random Glucose 83 Calcium Level 8.8 Sodium Level 145 Potassium Level 3.0 Chloride Level 111 Carbon Dioxide Level 25.8 Anion Gap 8 Estimat Glomerular Filtration Rate 98 Magnesium Level 2.0 Total Creatine Kinase 49 Thyroid Stimulating Hormone 3rd Gen 1.670 Date/Time Source Procedure Growth Status 04/25/18 14:40 Urine Catheterized Urine Urine Culture Pending Received (Jona Hebert MD R2) Result Diagram: 04/25/18 1440 04/25/18 1440 Imaging Last Impressions Head CT 04/25/18 0000 Signed Impressions: CONCLUSION: 1. No acute intracranial abnormalities. Likely chronic white matter ischemic c hanges. Chest X-Ray 04/25/18 0000 Signed Impressions: CONCLUSION: Stable biapical scarring. No acute cardiopulmonary disease. Brain MRI 04/25/18 0000 Signed Impressions: CONCLUSION: 1. No acute infarct. Severe white matter ischemic changes. Innumerable tiny he mosiderin deposits in the brain with blooming artifact on susceptibility weight ed images. (Jona Hebert MD R2) Caprini VTE Risk Assessment Caprini VTE Risk Assessment: Mod/High Risk (score >= 2) (Jona Hebert MD R2) Assessment and Plan Assessment and Plan 87 yo female with Parkinson's-like gait responsive to Sinemet and recurrent UTIs presenting with: (Jona Hebert MD R2) Attending Attestation PATIENT WAS SEEN AND EXAMINED. SHE HAS A H/O SOMEWHAT ATYPICAL PARKINGONISM - PRIMARILY AFFECTING GAIT AND BALANCE (WITHOUT SIGNIFICANT TREMOR OR RIGIDITY). nOTED TO BE AWAKE BUT UNRESPONSIVE YESTERDAY WHEN SHE WAS BROUGHT TO THE ER. SON IS A PHYSICAL THERAPIST; HE DESCRIBES SOMEWHAT OF A ATYPICAL DYSTONIA. MRS. NATION HAS BEEN IN THE SKILLED REHAB UNIT AT [facility] AFTER A RECENT HOSPITALIZATION IN WHICH SHE WAS TREATED FOR A ESBL E. COLI UTI. THIS CASE WAS DISCUSSED WITH DR. HEBERT. I HAVE REVIEWED THE RECORD AND AGREE WITH THE ABOVE NOTE AND PLAN OF CARE WAS DISCUSSED. I HAVE AUTHORIZED THE ORDER FOR PLACEMENT IN OUT-PATIENT OBSERVATION STATUS. (Jacob Diaz MD) Problem List: (1) Acute encephalopathy ICD Codes: G93.40 - Encephalopathy, unspecified Status: Resolved Plan: Acute altered mental status, now returned to baseline. Etiology unclear. Possible EPS from parkinson's treatment? Neurologic exam benign Hypokalemia to 3.0, repleted orally MRI with chronic white matter changes, no acute process -Consult neurology -f/u EEG -neuro checks -NIHSS -PT/OT/ST (2) Hypokalemia ICD Codes: E87.6 - Hypokalemia Status: Acute Plan: 3.0 on admission Re-check potassium S/p 100 mEq total of oral K (3) Parkinsonian features ICD Codes: R25.9 - Parkinsonian features Status: Chronic Plan: Continue home Carvidopa/levodopa and Effexor Await neurology input Permanent Comment: Last Edited By: Jona Hebert on Apr 26, 2018 09:38 (4) Recurrent cystitis ICD Codes: N30.90 - Recurrent cystitis Status: Chronic Plan: Recently completed IV antibiotic treatment for ESBL UTI UA negative No urinary symptoms UCx pending Hold Abx, f/u culture May D/c PICC line if negative Permanent Comment: Last Edited By: Jona Hebert on Apr 26, 2018 09:30 (5) FEN Status: Acute Plan: Fluids: NS @ 60 cc/hr Elecs: See above Nutrition: Diet heart healthy Code status: DNR Dispo: Observation. Discharge plan pending neuro consult and PT/OT recs. (Jona Hebert MD R2) Jona Hebert MD R2 Apr 26, 2018 09:17 Jacob Diaz MD Apr 26, 2018 18:16
[2018-04-26] MEDS: ASPIRIN EC 81 MG TABEC PO SCH (10:03)
[2018-04-26] MEDS: VENLAFAXINE HCL XR 75 MG CAP PO SCH (10:03)
[2018-04-26] MEDS: CARBIDOPA/LEVODOPA 25 MG/100 MG TAB PO SCH ×3 (11:42→18:21)
[2018-04-26 11:53] LABS: HEMATOCRIT 34.2 % (35.0-46.0); HEMOGLOBIN 11.3 GM/DL (11.6-15.3)
[2018-04-26 12:14] LABS: BICARBONATE 23.6 MEQ/L (21.0-32.0); CALCIUM 8.4 MG/DL (8.5-10.1); CREATININE 0.59 MG/DL (0.50-1.00)
--- NOTE | 2018-04-26 14:11 | EKG ---
Date Performed: 04/25/2018 Time Performed: 14:40:12 PTAGE: 87 years EKG: NORMAL Sinus rhythm WITH ATRIAL PREMATURE COMPLEXES LEFT AXIS DEVIATION LEFT ANTERIOR FASCICULAR BLOCK NONSPECIFIC ST [facility] ANGES LIKELY NO MAJOR CHANGE FROM PRIOR NORMAL ECG PREVIOUS TRACING : 04/07/2018 04.49 DOCTOR: Behzad Lucas Interpretating Date/Time 04/26/2018 14:09:32
[2018-04-26] MEDS ORDERED: hydrALAZINE HCL 10 MG TAB PO PRN (15:30)
--- NOTE | 2018-04-26 17:14 | MB ---
cc: Sudhir Fortune MD, PhD DATE: 04/26/2018 REASON FOR CONSULTATION: Mental status change. HISTORY OF PRESENT ILLNESS: Ms. Kumari is a very pleasant 87-year-old woman who has Parkinson's disease. Her son relates that she has been having some motor fluctuations the past week or two, with dyskinesias as well as freezing episodes. She has been getting more confused, hallucinating and also had an episode where she suddenly started staring into space. He had trouble getting her attention. There is no tonic-clonic activity. PAST MEDICAL HISTORY: She has history of frequent UTIs, Parkinson disease, depression, bilateral cataract surgery, tonsillectomy. MEDICATIONS: 1. Carbidopa/levodopa 25/100 t.i.d. 2. Effexor. 3. An aspirin. NEUROLOGICAL EXAMINATION. VITAL SIGNS: Blood pressure is 170/74, pulse 73, respiratory rate is 16, temperature 97.6 degrees. HIGHER CORTICAL FUNCTION: She is alert, oriented x 2. Her speech is fluent. She follows commands. CRANIAL NERVES: Intact with some diminished facial expressiveness. MOTOR EXAM: She has mild bradykinesia, 5/5 strength in all muscle groups. Minimal cogwheeling. IMAGING STUDIES: MRI of the brain: No acute change. Ischemic demyelinization is identified. There are several hemosiderin deposits in the brain with blooming artifact. The EEG pending. LABORATORY DATA: White count 6200; hemoglobin 11.3; hematocrit 33%; platelet count 200,000. Sodium is 145, potassium is 3, chloride 111, CO2 is 25.8. The BUN is 14, creatinine 0.58, GFR is 98, glucose is 83, calcium 8.8. CPK 49. TSH 1.6. Urinalysis: pH is 7, specific gravity 1.012, WBC is 4. IMPRESSION: Parkinson disease. The episodes that she describes sounds like freezing episodes, including the mental status change where she suddenly "shuts down" and stares into space. Focal seizure would be in the differential, but I think less likely. RECOMMENDATIONS: We will review the EEG. 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 I would like to start her on ropinirole initially at a low dose of 0.25 mg t.i.d. and monitor her neurologic status. Sudhir Fortune MD, PhD AXEL/RONNIE , 04:44 PM , 05:13 PM
--- NOTE | 2018-04-26 19:12 | MG ---
cc: Sudhir Fortune MD, PhD TEST NUMBER: [id number]. TECHNIQUE: A 17-channel EEG. DESCRIPTION: The background rhythm reveals symmetrical alpha frequency 8-9 Hz, amplitude 20-30 microvolts. Occasional muscle artifact identified. No lateralizing features are seen. No epileptiform discharges are seen. Photic results in a normal driving response. INTERPRETATION: Normal EEG. Sudhir Fortune MD, PhD XAEL/ELENA , 06:38 PM , 07:10 PM
[2018-04-26] MEDS ORDERED: DOCUSATE SODIUM 100 MG CAP PO SCH (21:00)
[2018-04-26] MEDS ORDERED: LATANOPROST 0.005% OPHT SOLN 2.5 ML BTL EACH EYE SCH (21:00)
[2018-04-27 00:03] VITALS: BP 136/64; PULSE 69; RESP 16; TEMP 97.7; O2SAT 97
[2018-04-27 00:18] VITALS: PULSE 66
[2018-04-27 05:04] VITALS: BP 178/75; RESP 16; TEMP 97.5; O2SAT 97
[2018-04-27 07:20] VITALS: PULSE 58
[2018-04-27 07:59] VITALS: BP 130/63; PULSE 67; RESP 15; TEMP 98.5; O2SAT 96
[2018-04-27 08:19] LABS: HEMATOCRIT 33.9 % (35.0-46.0); HEMOGLOBIN 11.4 GM/DL (11.6-15.3)
[2018-04-27] MEDS: ASPIRIN EC 81 MG TABEC PO SCH (09:29)
[2018-04-27] MEDS: VENLAFAXINE HCL XR 75 MG CAP PO SCH (09:29)
[2018-04-27] MEDS: CARBIDOPA/LEVODOPA 25 MG/100 MG TAB PO SCH ×3 (09:29→17:49)
[2018-04-27] MEDS: SODIUM CHLORIDE 0.9% FLUSH 10 ML FLUSH IV FLUSH SCH (09:30)
[2018-04-27 12:00] VITALS: BP 150/67; PULSE 67; RESP 17; TEMP 97.3; O2SAT 98
--- NOTE | 2018-04-27 13:12 | HHI.FPPN ---
Subjective Remarks Vitals stable overnight. Son is at bedside. Reports that patient seems confused and was having hallucinations this morning, seeing nurses passed around and again put in the fridge and was asking about her has been for 2 years. Usually becomes confused at night but confusion in the morning time is new. Patient was alert and oriented 3. Understood why she was in the hospital. States that she does not remember what had happened during her periods of confusion. (Angelica Cazares MD R1) Objective Vitals Vital Signs Date Time Temp Pulse Resp B/P (MAP) Pulse Ox O2 Delivery O2 Flow Rate FiO2 04/27/18 12:00 97.3 67 17 150/67 (94) 98 04/27/18 07:59 98.5 67 15 130/63 (85) 96 04/27/18 07:20 58 04/27/18 05:04 97.5 16 178/75 (109) 97 04/27/18 00:18 66 04/27/18 00:03 97.7 69 16 136/64 (88) 97 04/26/18 20:49 97.8 70 16 152/66 (94) 97 04/26/18 16:44 97.9 85 18 148/69 (95) 99 04/26/18 15:00 77 I/O 04/26/18 04/26/18 04/26/18 04/27/18 04/27/18 04/27/18 06:59 14:59 22:59 06:59 14:59 22:59 Intake Total 330 ml Balance 330 ml Intake IV Total 330 ml # Voids 2 # Bowel Movements 0 (Angelica Cazares MD R1) Result Diagram: 04/27/18 0740 04/27/18 0740 Imaging Last Impressions Head CT 04/25/18 0000 Signed Impressions: CONCLUSION: 1. No acute intracranial abnormalities. Likely chronic white matter ischemic c hanges. Chest X-Ray 04/25/18 0000 Signed Impressions: CONCLUSION: Stable biapical scarring. No acute cardiopulmonary disease. Brain MRI 04/25/18 0000 Signed Impressions: CONCLUSION: 1. No acute infarct. Severe white matter ischemic changes. Innumerable tiny he mosiderin deposits in the brain with blooming artifact on susceptibility weight ed images. Objective Remarks O. CONSTITUTIONAL/GEN: Thin elderly lady sitting quietly in bed. Is pleasant and conversant. EYES: conjunctiva normal, PERRLA, EOMI. ENT: Mouth and pharynx normal. NECK: No JVD. LUNGS: clear A-P, respiratory effort is normal. CARDIOVASCULAR: RR without murmur or gallop. No significant edema. GI/ABD: soft without masses, without organomegaly. NEURO: No focal deficits. Normal range of motion. SKIN: color normal, no rashes noted. MUSC: Extremities are normal in appearance. PSYCH/MENTAL STATUS: Alert and oriented x 3. (Angelica Cazares MD R1) A/P Assessment and Plan 87 yo female with Parkinson's-like gait responsive to Sinemet and recurrent UTIs admitted for acute encephalopathy. Spoke with neurology (Dr. Fortune) today , had started ropinirole yesterday. However concerned that new hallucinations may be secondary to initiation of ropinirole. Will discontinue ropinirole. Neurology would like to follow-up with patient in 1 week, believes patient may need other meds but this can be done outpatient. Physical therapy advises rehab on discharge due to patient's high fall risk. Patient will return to [facility] today. Discharge Planning Possible discharge today (Angelica Cazares MD R1) Attending Attestation Patient seen and examined. Hallucinations with trial of ropinirole. Urine culture negative. Case reviewed and discussed with the resident team. Agree with plan of care as discussed with me and documented in the resident note. (Jacob Diaz MD) Problem List: (1) Acute encephalopathy ICD Codes: G93.40 - Encephalopathy, unspecified Status: Resolved Plan: Acute altered mental status, now returned to baseline. Etiology unclear. Possible EPS from parkinson's treatment? Neurologic exam benign MRI with chronic white matter changes, no acute process EEG is normal Neurology consulted. Would like to follow-up with patient outpatient to further manage. (2) Hypokalemia ICD Codes: E87.6 - Hypokalemia Status: Acute Plan: 3.0 on admission. Repleted daily since admission. We will discharge with daily potassium supplement. Follow-up BMP in 1 week. (3) Parkinsonian features ICD Codes: R25.9 - Parkinsonian features Status: Chronic Plan: Continue home Carvidopa/levodopa and Effexor Await neurology input Permanent Comment: Last Edited By: Jona Hebert on Apr 26, 2018 09:38 (4) Recurrent cystitis ICD Codes: N30.90 - Recurrent cystitis Status: Chronic Plan: Recently completed IV antibiotic treatment for ESBL UTI UA negative No urinary symptoms Urine culture negative D/c PICC line Permanent Comment: Last Edited By: Jona Hebert on Apr 26, 2018 09:30 (5) FEN Status: Acute Plan: Fluids: PO Elecs: See above Nutrition: Diet heart healthy Code status: DNR (Angelica Cazares MD R1) Angelica Cazares MD R1 Apr 27, 2018 13:12 Jacob Diaz MD Apr 28, 2018 07:30
[2018-04-27] MEDS ORDERED: POTA10TA2 PO (13:19)
--- NOTE | 2018-04-27 13:19 | HHI.DCPOC ---
Discharge Care Plan Diagnosis: (1) Acute encephalopathy (2) Hypokalemia Goals to Promote Your Health * To prevent worsening of your condition and complications * To maintain your health at the optimal level Directions to Meet Your Goals Take your medications as prescribed Follow your dietary instruction Follow activity as directed Keep your appointments as scheduled Take your immunizations and boosters as scheduled If your symptoms worsen call your PCP, if no PCP go to Urgent Care Center or Emergency Room Smoking is Dangerous to Your Health. Avoid second hand smoke Call the 24-hour hour crisis hotline for domestic abuse at Angelica Cazares MD R1 Apr 27, 2018 13:19
--- NOTE | 2018-04-27 18:17 | HHI.PR ---
Review/Management Diagnosis Parkinsons disease Hallucination increase most likely due to ropinerol Plan d/c ropineral and continue current sinemet dose ok from neurologic standpoint to discharge and follow up with me in office next week Diagnosis/Plan: Subjective Subjective Comments Patient had more hallucinations this am. Now resolved. Active Medications Current Medications Medications (Trade) Dose Ordered Sig/Willam Route Start Time Stop Time Status Last Admin (NS Flush) 2 ml UNSCH PRN IV FLUSH 04/25/18 16:30 (NS Flush) 2 ml BID IV FLUSH 04/25/18 21:00 04/27/18 09:30 (Ecotrin Ec) 81 mg DAILY PO 04/26/18 09:00 04/27/18 09:29 (Sinemet 25-100 Mg) 1 tab TID PO 04/26/18 09:00 04/27/18 17:49 (Colace) 200 mg HS PO 04/26/18 21:00 04/26/18 22:46 (Xalatan 0.005% Opth Soln) 1 drop HS EACH EYE 04/26/18 21:00 04/26/18 22:45 (Ativan) 0.5 mg DAILY PRN PO 04/26/18 08:30 (Ultram) 50 mg Q6H PRN PO 04/26/18 08:30 (Effexor Xr) 150 mg DAILY PO 04/26/18 09:00 04/27/18 09:29 (Apresoline) 10 mg Q8HR PRN PO 04/26/18 15:30 (Requip) 0.25 mg Q8HR PO 04/26/18 16:45 Future Hold 04/27/18 06:58 Allergies Allergies Coded Allergies No Known Allergies (Unverified04/25/18) Exam I&O / VS Vital Signs Date Time Temp Pulse Resp B/P (MAP) Pulse Ox O2 Delivery O2 Flow Rate FiO2 04/27/18 12:00 97.3 67 17 150/67 (94) 98 04/27/18 07:59 98.5 67 15 130/63 (85) 96 04/27/18 07:20 58 04/27/18 05:04 97.5 16 178/75 (109) 97 04/27/18 00:18 66 04/27/18 00:03 97.7 69 16 136/64 (88) 97 04/26/18 20:49 97.8 70 16 152/66 (94) 97 Exam Comments alert, follows commands CN intact MOTOR--moderate bradykinesia. 5/5 BUE, moderate cogwheel rigidity BUE Objective Micro and Labs Laboratory Tests Test 04/27/18 07:40 Hemoglobin 11.4 Hematocrit 33.9 Potassium Level 3.5 Date/Time Source Procedure Growth Status 04/25/18 14:40 Urine Catheterized Urine Urine Culture - Final NO GROWTH IN 48 HOURS. Complete Diagnostic Tests EEG---normal Sudhir Fortune MD PhD Apr 27, 2018 18:17
== END 2018-04-27 18:39 ==
LOC: NEPC 13:22 → NEDA 16:22 → NEPFCDU 18:43
PROVIDERS: ADMIT Family Medicine; ATTEND Family Medicine
DX: G93.40 Encephalopathy, unspecified (principal); E87.6 Hypokalemia; N30.90 Cystitis, unspecified without hematuria; Z66 Do not resuscitate; G20 Parkinson's disease; R44.3 Hallucinations, unspecified; F41.9 Anxiety disorder, unspecified; I48.91 Unspecified atrial fibrillation; F03.90 Unspecified dementia, unspecified severity, without behavioral disturbance, psychotic disturbance, mood disturbance, and anxiety; Z87.442 Personal history of urinary calculi; Z91.81 History of falling; F41.8 Other specified anxiety disorders; Z90.710 Acquired absence of both cervix and uterus; Z79.899 Other long term (current) drug therapy; R90.82 White matter disease, unspecified; I44.4 Left anterior fascicular block
CPT/HCPCS: 70450; 70551; 71045; 80048; 81001; 82550; 83735; 84132; 84443; 85014; 85018; 85025; 87086; 93005; 95819; 96125; 96360; 96361; 97162; 97166; 99285; G0378; G8987; G8988; G9168; G9169; J7030; P9612